=== PATIENT | female | born 1960 | race Caucasian/White ===

== ENCOUNTER 2025-09-05 08:33 | Outpatient (REF) | payer BC, SELFPAY ==
--- NOTE | ~2025-09-05 | XR_ITS ---
EXAMINATION: XR KNEE, RIGHT CLINICAL INFORMATION: M25.561 - Pain in right knee COMPARISON: None available. TECHNIQUE: Three views of the right knee. FINDINGS: Bone mineralization is decreased. Severe medial and patellofemoral compartment arthritis. Moderate lateral compartment arthritis. Genu varus. No acute fracture or dislocation. Small effusion. XR/XR knee RT 3V IMPRESSION: Advanced tricompartment osteoarthritis. Small effusion. Electronically signed by: Brett Geiger MD 09/05/2025 11:33 AM CATHIE
--- OUTSIDE RECORDS SUMMARY | 2025-09-06 09:06 | XMS_ITS | Clinical Summary ---
Author Organization [facility] [address] Address [address] [place] [address] Phone Care Team Providers Care Wool Hat Hydraulicker Name Role Phone Zoie Mullins MD Primary [...] Problem Noted Date Diagnosed Date Morbid obesity ([facility] V24, [facility] V28) 2024 Arthritis 02/25/2021 Crohn disease ([facility] V24, [facility] V28) 021 Incisional hernia with bowel obstruction 018 GERD (gastroesophageal reflux disease) 8 JORGE ALBERTO (obstructive sleep apnea) 04/25/2018 Overview (12/03/2024): [facility] Home Sleep Apnea Test: Date 01/18/2021; Wt [...] Care Team Description 06/10/2025 Telephone Pulmonology - [address] [place] [address] Lynn Gee MA from Last 3 Months Surgical History Surgery Date Site/Laterality Comments HERNIA REPAIR 11/06/2018 PROCEDURE: HISTORICAL HERNIA REPAIR/UMB; COMMENT: CHOLECYSTECTOMY PROCEDURE: IA CHOLECYSTECTOMY; COMMENT: 2008 COLONOSCOPY 01/2009 PROCEDURE: HISTORICAL COLONOSCOPY; COMMENT: normal OTHER SURGICAL HISTORY 1995 PROCEDURE: ---- OTHER ----; COMMENT: anal fistula repair OTHER SURGICAL HISTORY PROCEDURE: IA HYSTEROSCOPY ENDOMETRIAL ABLATION INCISIONAL HERNIA REPAIR PROCEDURE: IA IMPLANT MESH OPN HERNIA RPR/DEBRIDEMENT CLOSURE; COMMENT: repair incarcerated incisional hernia COLONOSCOPY 02/28/2014 PROCEDURE: HISTORICAL COLONOSCOPY; COMMENT: [id number] Medical History Medical History Date Comments GERD [...] 11:50 AM EDT Office Visit Pulmonology - [place] [address] [place] [address] Evelin Villa, KEYANA [address] [place] [address] Health Maintenance Due Date Last Done [...] Maintenance Results * COLONOSCOPY Anesthesia - MAC; [facility] ENDOSCOPY (03/14/2025 1:09 PM EDT) Anatomical Region [...] for surveillance. Narrative 03/14/2025 1:[address] [facility] Patient Name: Alexandra Flores Procedure Date: [...] retroflexion views. Procedure Code(s): --- Professional --- 99532, Colonoscopy, flexible; with removal of tumor(s), polyp(s), or other lesion(s) by snare technique Diagnosis Code(s): --- Professional --- K57.30, Diverticulosis of large intestine without perforation or abscess without bleeding D12.2, Benign neoplasm of ascending colon D12.5, Benign neoplasm of sigmoid colon Z86.010, Personal history of colonic polyps CPT copyright 2020 [employer]. All rights reserved. The codes documented in this report are preliminary and upon management coordinator review may be revised to meet current compliance requirements. MD Pieter Sams MD 03/14/2025 1:10:45 PM This report has been signed electronically.Pieter Allen MD Number of Addenda: 0 Note Initiated On: 03/14/2025 12:25 PM Scope In: Scope Out: Endoscopy Department at [facility] - [address] [place] [id number] Procedure Note Pieter Allen MD - 03/14/2025 [facility] Patient Name: Alexandra Flores Procedure Date: [...] retroflexion views. Procedure Code(s): --- Professional --- 03298, Colonoscopy, flexible; with removal of tumor(s), polyp(s), or other lesion(s) by snare technique Diagnosis Code(s): --- Professional --- K57.30, Diverticulosis of large intestine without perforation or abscess without bleeding D12.2, Benign neoplasm of ascending colon D12.5, Benign neoplasm of sigmoid colon Z86.010, Personal history of colonic polyps CPT copyright 2020 [employer]. All rights reserved. The codes documented in this report are preliminary and upon management coordinator reviewmay be revised to meet current compliance requirements. MD Pieter Sams MD 03/14/2025 1:10:45 PM This report has been signed electronically.Pieter Allen MD Number of Addenda: 0 Note Initiated On: 03/14/2025 12:25 PM Scope In: Scope Out: Endoscopy Department at [facility] - [address] [place] [phone] IMPRESSION: - Two 4 to 6 mm [...] Most Recently Relevant to Health Maintenance Insurance [facility] Advance Directives Documents on File Type Date Recorded Patient Test Engineering Intern Expl anation Health Care Decision (hx) 05/16/2016 BING NICHOLSON DIRECTIVE Care Teams Wool Hat Hydraulicker Relationship Specialty Start Date End Date Zoie Mullins MD [address] [place] [id number] PCP - General 05/28/24
--- OUTSIDE RECORDS SUMMARY | 2025-09-06 09:06 | XMS_ITS | Clinical Summary ---
Author Organization [facility] Address [address] [place] [address] Care Team Providers Care Commercial Loan Collection Officer Name Role Phone Unavailable Primary Care Provider [...] Subscriber ID Effective Dates Phone Address Type [facility] [id number] 10/31-Pres ent [address] [place] [address] [facility] [id number] 2019-Pres ent [address] [place] [address]
== END 2025-09-05 08:34 | disposition home or self-care (01) ==
LOC: HO.HOSX 08:33
PROVIDERS: Visit Provider Orthopaedic Surgery
DX: S83.241A Other tear of medial meniscus, current injury, right knee, initial encounter (principal)
CPT/HCPCS: 73562

== ENCOUNTER 2025-09-05 10:46 | Outpatient (AMB) | payer BC, SELFPAY ==
--- NOTE | 2025-09-05 11:10 | MHC.OFFVIS ---
Vital Signs 09/05/25 11:15 Height 5 ft 2 in Weight 286 lb BMI 52.3 Intake Visit Reasons: Right knee pain and giving way Intake Note: Leana is a 65 yr old female who presents with complaints of progressively worsening right knee pain and giving way. The patient describes her pain as sharp in nature. Most of the pain is along the medial aspect of her right knee. She states that her symptoms have gotten worse over the last 2 years in spite of continued non operative treatments. She has tried Tylenol, meloxicam, physical therapy and a home exercise program which gave her minimal relief. She states that her right knee will give out several times per day. She has had injections in the past which gave her minimal relief. At this point her right knee pain and mechanical symptoms are interfering with her activities of daily living and her ability to sleep well through the night. 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 Physical Exam Vital Signs: BMI result Body Mass Index 52.3 Const Other: Well-nourished well-developed very friendly female awake alert and oriented x3 in no acute distress Extrem Other: Bilateral lower extremity examination shows good capillary refill, no skin lesions noted, normal sensation light touch Right knee examination shows a minimal effusion, mild crepitus with range of motion, tenderness along her medial joint line, positive Chicho's test, no instability Results Reviewed Results Reviewed: Standing full weight-bearing x-rays of the patient's right knee show mild diffuse degenerative changes, no acute bony abnormalities MRI of the patient's right knee shows mild to moderate diffuse degenerative changes as well as a tear of the medial meniscus Assessment & Plan Assessment & Plan (1) Tear of medial meniscus of right knee: Code(s): S83.241A - Other tear of medial meniscus, current injury, right knee, initial encounter Category: Medical Plan Ms. Sandra presents with progressively worsening right knee pain and mechanical symptoms due to early degenerative joint disease as well as a medial meniscus tear. I had a lengthy discussion with the patient regarding the treatment options. She wishes to hold off on total knee replacement surgery if at all possible. I agree with this plan. The risks and benefits of right knee arthroscopic surgery were discussed at length with the patient. The patient wishes to proceed with surgery. Surgery will involve right knee arthroscopic partial medial meniscectomy. She does understand that she may not get 100% relief of her symptoms depending on the severity of her degenerative changes. She will be scheduled for next available date. She will follow up as instructed. Feel free to call me at any time should questions regarding her orthopedic management arise. Thank you very much for asking me to see this very friendly patient. I spent 21 minutes in reviewing the patient's records and imaging studies, seeing the patient and documenting in the medical record. Orders: Orders XR knee RT 3V Today M25.561 - Pain in right knee Coding Level of Care Code New Pt Level 3 (61765) Complex EM visit Add On G2211 Diagnoses Tear of medial meniscus of right knee S83.241A
[2025-09-05 11:15] VITALS: BMI 52.3
--- OUTSIDE RECORDS SUMMARY | 2025-09-05 13:04 | XMS_ITS | Clinical Summary ---
Author Organization [facility] [address] [facility] Address [address] [place] [address] Phone Care Team Providers Care Research Physician Name Role Phone Zoie Mullins MD Primary Care Provider Allergies Active Allergy Reactions Criticality Noted Date Comments Codeine Nausea And Vomiting 11/23/2017 Medications omega-3 acid ethyl esters (LOVAZA) 1 gram capsule Take 1 Capsule by mouth daily. 06/07/2022 Active mag citrate-potassiu m citrate 70-99 mg capsule Take by mouth. Active digestive enzymes combo no.7 capsule Take by mouth. Active Lactobacillus acidophilus (PROBIOTIC ACIDOPHILUS ORAL) Take by mouth. Active multivit-min/iro n/FA/vit K/lut (MULTIVITAMIN WOMEN 50 PLUS ORAL) Take by mouth daily. Active cholecalciferol (VITAMIN D-3) 25 mcg (1,000 unit) tablet Take 1 tablet (1,000 Units total) by mouth 1 (one) time each day. Active Active Problems Problem Noted Date Diagnosed Date Morbid obesity ([facility] V24, [facility] V28) 2024 Arthritis 02/25/2021 Crohn disease ([facility] V24, [facility] V28) 021 Incisional hernia with bowel obstruction 018 GERD (gastroesophageal reflux disease) 8 JORGE ALBERTO (obstructive sleep apnea) 04/25/2018 Overview (12/03/2024): [facility] Home Sleep Apnea Test: Date 01/18/2021; Wt 264#; BMI 48; CARSON (AHI) 9, AI 4; HI 5; Unclassified apneas 2; Obstructive apneas 22; Central apneas 2; Mixed apneas 0; hypopneas 37; average oxygen saturation 94% (lowest 87% without saturations <88% for 5% or more of study) - Obstructive Sleep Apnea - mild; mostly hypopneas and obstructive apneas; without sleep related hypoventilation by 2020 home sleep apnea test. Intertrigo 11/23/2017 Pannus, abdominal 11/23/2017 Encounters Date Type Department Care Team Description 06/10/2025 Telephone Pulmonology - [address] [place] [address] Lynn Gee MA from Last 3 Months Surgical History Surgery Date Site/Laterality Comments HERNIA REPAIR 11/06/2018 PROCEDURE: HISTORICAL HERNIA REPAIR/UMB; COMMENT: CHOLECYSTECTOMY PROCEDURE: WY CHOLECYSTECTOMY; COMMENT: 2008 COLONOSCOPY 01/2009 PROCEDURE: HISTORICAL COLONOSCOPY; COMMENT: normal OTHER SURGICAL HISTORY 1995 PROCEDURE: ---- OTHER ----; COMMENT: anal fistula repair OTHER SURGICAL HISTORY PROCEDURE: WY HYSTEROSCOPY ENDOMETRIAL ABLATION INCISIONAL HERNIA REPAIR PROCEDURE: WY IMPLANT MESH OPN HERNIA RPR/DEBRIDEMENT CLOSURE; COMMENT: repair incarcerated incisional hernia COLONOSCOPY 02/28/2014 PROCEDURE: HISTORICAL COLONOSCOPY; COMMENT: [id number] Medical History Medical History Date Comments GERD (gastroesophageal reflu x disease) 04/25/2018 DX:GERD (gastroesophageal re flux disease) JORGE ALBERTO (obstructive sleep apnea) 04/25/2018 DX :JORGE ALBERTO (obstructive sleep apnea) History of abdominal hernia 02/25/2021 DX:H istory of abdominal hernia Arthritis 02/25/2021 DX:Arthritis Intertrigo 11/23/2017 DX:Intertrigo Pannus, abdominal 11/23/2017 DX:Pannus, abd ominal Class 3 obesity without seri ous comorbidity with body mass index (BMI) of 40.0 to 44.9 in adult 04/18/2018 DX:Class 3 obesity with out serious comorbidity with body mass index (BMI) of 40.0 to 44.9 in adult Incisional hernia with bowel obstruction 08/11/2018 DX:Incisional hernia with satya wel obstruction Crohn disease (CMS/HCC V24, CMS/HCC V28) 02/25/2021 DX:Crohn disease (HCC) Family History Medical History Relation Name Comments Colon cancer Father stomach ulcers Coronary artery disease Father stomach ulcers Hypertension Father stomach ulcers Diabetes Mother Other: malignant tumor of breast Other cousin Relation Name Status Comments Father stomach ulcers Mother Other cousin Social History Tobacco Use Types Packs/Day Years Used Date Smoking Tobacco: Former Smokeless Tobacco: Never Alcohol Use Standard Drinks/Week Comments Yes 0 (1 standard drink = 0.6 oz pur e alcohol) Interpersonal Safety Answer Date Record ed Physical Abuse Unrecognized value 03/14/2025 Verbal Abuse Unrecognized value 03/14/2025 Comments No Sex and Gender Information Value Date Recorded Sex Assigned at Not on file Legal Sex Female 7:24 AM EST Gender Identity Not on file Sexual Orientation Not on file Obstetrics History Last Filed Vital Signs Vital Sign Reading Time Taken Comments Blood Pressure 126/76 05/31/2025 10:15 AM EDT Pulse 66 05/31/2025 10:15 AM EDT Temperature 36.4 C (97.5 F) 05/31/2025 10:15 AM EDT Respiratory Rate 16 05/31/2025 10:15 AM EDT Oxygen Saturation 99% 05/31/2025 10:15 AM EDT Inhaled Oxygen Concentration - - Weight 129 kg (284 lb 9.6 oz) 05/31/2025 10:15 A M EDT Height 157.5 cm (5' 2 ) 05/31/2025 10:15 AM EDT Body Mass Index 52.05 05/31/2025 10:15 AM EDT Plan of Treatment Upcoming Encounters Date Type Department Care Team (Late st Contact Info) Description 06/06/2026 11:50 AM EDT Office Visit Pulmonology - [place] [address] [place] [address] Evelin Villa, KEYANA [address] [place] [phone] Health Maintenance Due Date Last Done Comments Breast Cancer Screening 1960 Pneumococcal Vaccine: 50+ Years (1 of 1 - PCV) 2011 RSV Immunization Adult Patients (1 - Risk 50-74 years 1-dose series) 2011 Zoster Vaccines (1 of 2) 2011 Cervical Cancer Screening: Pap Smear 06/22/2020 06/22/2017 Cholesterol Screening (Lipid Panel) 10/03/2022 HIV Screening 10/03/2022 Hepatitis C Screening 10/03/2022 Social Influencers of Health Screening 10/03/2022 Depression Screening 10/31/2024 COVID-19 Vaccine ( season) 2025 07/29/2023, 07/19/2022, 09/03/2021, Additional history exists Influenza Vaccine (#1) 2025 , 07/29/2023, 07/19/2022, Additional history exists DTaP,Tdap,and Td Vaccines (3 - Td or Tdap) 04/21/2032 04/21/2022, 03/20/2009 Colorectal Cancer Screening: Colonoscopy 03/14/2035 03/14/2025, 11/20/2019 MMR Vaccines Aged Out 03/21/2019, 02/19/2019 No lo nger eligible based on patient's age to complete this topic HIB Vaccines Aged Out No longer eligi ble based on patient's age to complete this topic HPV Vaccines Aged Out No longer eligi ble based on patient's age to complete this topic Hepatitis A Vaccines Aged Out No long er eligible based on patient's age to complete this topic Hepatitis B Vaccines Aged Out No long er eligible based on patient's age to complete this topic IPV Vaccines Aged Out No longer eligi ble based on patient's age to complete this topic Meningococcal ACWY Vaccine Aged Out N o longer eligible based on patient's age to complete this topic Meningococcal B Vaccine Aged Out No l onger eligible based on patient's age to complete this topic RSV Immunization Patients Under 20 months Aged Out No longer eligible based on patient's age to complete this topic Varicella Vaccines Aged Out No longer eligible based on patient's age to complete this topic Procedures Procedure Name Priority Date/Time Associated Diagnosis Comments COLONOSCOPY Routine 03/14/2025 1:09 PM EDT Personal history of colon polyps, unspecified Colitis HM PAP SMEAR Routine 06/22/2017 from Last 3 Months or Most Recently Relevant to Health Maintenance Results * COLONOSCOPY Anesthesia - MAC; [facility] ENDOSCOPY (03/14/2025 1:09 PM EDT) Anatomical Region Laterality Modality Other 03/14/2025 12:2 5 PM EDT Impressions 03/14/2025 1:10 PM EDT - Two 4 to 6 mm polyps in the sigmoid colon and in the ascending colon, removed with a cold snare. Resected and retrieved. - Diverticulosis in the left colon. - The examination was otherwise normal on direct and retroflexion views. Recommendation: - Patient has a contact number available for emergencies. The signs and symptoms of potential delayed complications were discussed with the patient. Return to normal activities tomorrow. Written discharge instructions were provided to the patient. - Resume previous diet. - Continue present medications. - Await pathology results. - Repeat colonoscopy in 5-10 years for surveillance. Narrative 03/14/2025 1:10 PM EDT [facility] GI Patient Name: Alexandra Flores Procedure Date: 03/14/2025 12:25 PM Date of : 1960 Age: 64 Room: ROOM 16 Gender: Female Note Status: Finalized Attending MD: Pieter Allen MD, Procedure Date No Time: 03/14/2025 Procedure: Colonoscopy Indications: High risk colon cancer surveillance: Personal history of colonic polyps Providers: Pieter Allen MD Referring MD: Pieter Allen MD Medicines: Monitored Anesthesia Care Complications: No immediate complications. Estimated Blood Loss: Estimated blood loss: none. Procedure: After I obtained informed consent, the scope was passed under direct vision. Throughout the procedure, the patient's blood pressure, pulse, and oxygen saturations were monitored continuously. The Colonoscope was introduced through the anus and advanced to the cecum, identified by appendiceal orifice and ileocecal valve. The colonoscopy was performed without difficulty. The patient tolerated the procedure well. The quality of the bowel preparation was adequate. Findings: Two sessile polyps were found in the sigmoid colon and ascending colon. The polyps were 4 to 6 mm in size. These polyps were removed with a cold snare. Resection and retrieval were complete. Many medium-mouthed diverticula were found in the left colon. The exam was otherwise without abnormality on direct and retroflexion views. Procedure Code(s): --- Professional --- 41369, Colonoscopy, flexible; with removal of tumor(s), polyp(s), or other lesion(s) by snare technique Diagnosis Code(s): --- Professional --- K57.30, Diverticulosis of large intestine without perforation or abscess without bleeding D12.2, Benign neoplasm of ascending colon D12.5, Benign neoplasm of sigmoid colon Z86.010, Personal history of colonic polyps CPT copyright 2020 [employer]. All rights reserved. The codes documented in this report are preliminary and upon sharepoint solutions developer review may be revised to meet current compliance requirements. MD Pieter Sams MD 03/14/2025 1:10:45 PM This report has been signed electronically.Pieter Allen MD Number of Addenda: 0 Note Initiated On: 03/14/2025 12:25 PM Scope In: Scope Out: Endoscopy Department at [facility] - [address] [place] [id number] Procedure Note Pieter Allen MD - 03/14/2025 [facility] GI Patient Name: Alexandra Flores Procedure Date: 03/14/2025 12:25 PM Date of : 1960 Age: 64 Room: ROOM 16 Gender: Female Note Status: Finalized Attending MD: Pieter Allen MD, Procedure Date No Time: 03/14/2025 Procedure: Colonoscopy Indications: High risk colon cancer surveillance: Personalhistory of colonic polyps Providers: Pieter Allen MD Referring MD: Pieter Allen MD Medicines: Monitored Anesthesia Care Complications: No immediate complications. Estimated Blood Loss: Estimated blood loss: none. Procedure: After I obtained informed consent, the scope was passed under direct vision. Throughout theprocedure, the patient's blood pressure, pulse, and oxygen saturations were monitored continuously. The Colonoscope was introduced through the anus and advanced to the cecum, identified by appendiceal orifice and ileocecal valve. The colonoscopy was performed without difficulty. The patient tolerated the procedure well. The quality of the bowel preparation was adequate. Findings: Two sessile polyps were found in the sigmoid colonand ascending colon. The polyps were 4 to 6 mm in size. These polyps were removed with a cold snare.Resection and retrieval were complete. Many medium-mouthed diverticula were found in theleft colon. The exam was otherwise without abnormality ondirect and retroflexion views. Procedure Code(s): --- Professional --- 58324, Colonoscopy, flexible; with removal of tumor(s), polyp(s), or other lesion(s) by snare technique Diagnosis Code(s): --- Professional --- K57.30, Diverticulosis of large intestine without perforation or abscess without bleeding D12.2, Benign neoplasm of ascending colon D12.5, Benign neoplasm of sigmoid colon Z86.010, Personal history of colonic polyps CPT copyright 2020 [employer]. All rights reserved. The codes documented in this report are preliminary and upon sharepoint solutions developer reviewmay be revised to meet current compliance requirements. MD Pieter Sams MD 03/14/2025 1:10:45 PM This report has been signed electronically.Pieter Allen MD Number of Addenda: 0 Note Initiated On: 03/14/2025 12:25 PM Scope In: Scope Out: Endoscopy Department at [facility] - [address] [place] [id number] IMPRESSION: - Two 4 to 6 mm polyps in the sigmoid colon and in the ascending colon, removed with a cold snare.Resected and retrieved. - Diverticulosis in the left colon. - The examination was otherwise normal on directand retroflexion views. Recommendation: - Patient has a contact number available for emergencies. The signs and symptoms of potential delayed complications were discussed with thepatient. Return to normal activities tomorrow. Written discharge instructions were provided to thepatient. - Resume previous diet. - Continue present medications. - Await pathology results. - Repeat colonoscopy in 5-10 years forsurveillance. Pieter Allen MD GI~PROCEDURE ORDERABLES Final R esult * Hm Pap Smear (06/22/2017) HM Pap smear no interpretation , abstracted us Historical Provider HEALTH MAINTENANCE Final Result from Last 3 Months or Most Recently Relevant to Health Maintenance Insurance [facility] Advance Directives Documents on File Type Date Recorded Patient Transfusion Aide Expl anation Health Care Decision (hx) 05/16/2016 BING NICHOLSON DIRECTIVE Care Teams Research Physician Relationship Specialty Start Date End Date Zoie Mullins MD [address] [place] [id number] PCP - General 05/28/24
--- OUTSIDE RECORDS SUMMARY | 2025-09-05 13:04 | XMS_ITS | Data Portability ---
Author Organization [facility], [facility] Address [address] [place] [address] Care Team Providers Care Air Commodore Name Role Phone ABDIRIZAKRICARDO KAUR Primary Care Provider Assessment Encounter Date Assessment Date Assessment LastModified by Organization Details LastModified Time 02/21/2024 02/21/2024 A: Pt responded well to STM and was able to transfer on/off table without difficulty. TTP L hip and pt had increased pain with lying on L side. Pt encouraged to continue with gentle stretching throughout the day and to not sit > 15 minutes at a time. P: Continue per plan of care. [email or web address] Not available 02/21/2024 15:54:44 06/13/2024 06/13/2024 Patient seen under general supervision of Dr. Quiñones who was available but who did not see the patient. HPI: 64-year-old female seen today regarding right hip and knee pain. Patient and parents in difficulty for a number of months. Has been using ibuprofen without significant relief. Reports pain about the knee in the anterior aspect and difficulty with stairs and getting up from a seated position. Describes pain about the hip more about the low back. Denies any pain about the groin. Denies any recent falls or trauma. Past family, medical, social history and review of systems has been reviewed, updated and is located in the patient s chart. Examination: 64-year-old female acute distress alert and oriented. On examination right hip no ecchymosis or erythema and warmth noted. Patient has full range of motion without any irritability. No significant tenderness about the anterior lateral aspect of the hip. No groin pain elicited with range of motion. On examination of the right knee, no effusion erythema or warmth. Tenderness about the patellar facet as well as the medial and lateral jose manuel-joint lines. No gross instability. Range of motion 0-110 . Calf is soft. X-rays ordered, obtained and reviewed at [facility] 2 views of the right hip reveal minimal arthritic change, no evidence of acute fracture or dislocation. Outside x-rays of the right knee are independently reviewed revealing arthritic change about the medial and lateral compartments as well as notably about the patellofemoral articulation. No evidence of acute fracture. Impression: Right knee arthritis and low back pain Plan: Treatment options are reviewed. Regarding patient's hip, difficulty she is experiencing does not emanate from the hip itself therefore we will arrange for the patient to be seen by a tower air traffic control specialist for further evaluation and care. Regarding the right knee, patient suffers from arthritis was offered an injection which she accepted. This is performed today. Role of total knee arthroplasty discussed. Patient will work on weight loss, we will follow up regarding the knee on a p.r.n. basis. [employer] speech recognition remote sensing specialist software was used to create portions of this document. An attempt at proofreading has been made to minimize errors. Please call for corrections. [email or web address] Not available 06/13/2024 17:40:30 Plan of Treatment Reminders Order Date Submit Date Provider Last Modified By Organization Details Last Modified Time Details Appointments None recorded. Lab None recorded. Referral pain managemen t referral - lumbar spine eval for injection 2023 024 MILDRED [facility], [address] [place] [address], [address], 5 13:03:46 Procedures None recorded. Surgeries None recorded. Imaging XR, hip + pelvis, unilatera l, 2 or 3 view - 121 2v 2023 024 t[facility], [address] [facility] [address], [address], 4 07:39:23 Medication Orders None recorded. Patient Targets Encounter Date Encounter Id Patient Goals Patient Target Last Modified By Organization Details Last Modified Time 02/21/2024 [id number] 3 weeks of Walking 15 minutes without pain Not available Not available Not available skilled nursing goal of Walking No difficulty: walking capability is unlimited Not available Not available Not available 3 weeks of Overall ADL's WFL Not available Not available Not available skilled nursing goal of Overall ADL's performs without symptoms Not available Not available Not available 3 weeks of Sitting 30 minutes without pain Not available Not available Not available skilled nursing goal of Sitting performs without symptoms Not available Not available Not available 3 weeks of Standing 15 minutes without pain Not available Not available Not available 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 Reason for Referral Pain Management Referral for Dysfunction of posterior tibial tendon lumbar spine eval for injection Referring Physician: Jody Jensen, Orthopedic Surgery, [id number] Encounter Date: 08/20/2024 Results Created Date Observation Date Name Description Value Unit Range Abnormal Flag Note LastModifiedBy Organization Detail LastModifiedTime 06/13/20 24 06/13/2024 XR, hip + pelvi s, unila teral , 2 or 3 view http:/ [email or web address] ?Encry pted=s hAaTro YD8dLq bEUv6g %2BXZw aYqtaq 0bqfl% 2Fg9IQ a4ajBk vP9nXo QUaueC m3YtLR FvZlgJ JJ8mAn HZtai3 2u4074 AC0KoY 36DUqX eUC8mr 84%3D INTERFACE [facility] [address] [facility] [address], [place], [address], 06/13/2024 17:24:29 06/13/20 24 06/13/2024 XR, hip + pelvi s, unila teral , 2 or 3 view http:/ [email or web address] ?Encry pted=s hAaTro YD8dLq bEUv6g %2BXZw aYqtaq 0bqfl% 2Fg9IQ a4ajBk vP9nXo QUaueC m3YtLR FvZlgJ JJ8mAn HZtai3 9n4154 AC0KoY 36DUqX eUC8mr 84%3D INTERFACE [facility] [address] [facility] [address], [place], [address], 06/13/2024 17:24:30 08/16/20 24 08/15/2024 MRI, lumba r spine , w/o contr ast [facility] Access ion Number : [id number] Patien t Name: Hayley Floresa l Record Number : [id number] Date of : 1959 Date of Exam: 2023 Referr ing Physic [place]: [facility] [address] [facility] , [address] [place] [address] Exam: MR Lumbar Spine (C-) CPT 43576 Room Descri ption: [facility] Espr 1.5 HISTOR Y: Right hip pain and knee pain. COMPAR CRISTINE: Lumbar spine x-rays , 024. FINDIN GS: ALIGNM ENT, VERTEB CONCHIS, MARROW , AND DISCS: There is minima l stairs tep hali listhe sis from L3-L5 withou t pars defect . Remain ing alignm ent is normal . Verteb ral body height s are preser aldair. There is diffus e disc desicc ation with mild multil evel disc space narrow ing. There is edema within the bilate ral L4 and L5 pedicl es, as well as in the right L4-5 facets . Otherw ise, bone marrow signal is within normal limits . CONUS: The visual ized lower thorac ic cord is normal in calibe r and signal . The conus termin ates at L2. PARASP INAL TISSUE S: Retrop eriton eal soft tissue s are unrema rkable . There is fatty atroph y of the web coordinator ior parasp inal muscle s. DETAIL ED FINDIN GS BY LEVEL: L1-L2: There is no signif icant canal or neural forami nal stenos is. L2-L3: There is very minima l disc bulgin g and facet spurri ng withou t canal or neural forami nal stenos is. L3-L4: There is minima l disc bulgin g, web coordinator ior ligame ntous thicke kathe, and facet spurri ng withou t canal stenos is. The neural forame n are patent . L4-L5: There is minima l disc bulgin g, web coordinator ior ligame ntous thicke kathe, and facet spurri ng withou t signif icant canal stenos is. The neural forame n are patent . L5-S1: There is very minima l disc bulgin g and facet spurri ng withou t canal stenos is. The neural forame n are patent . IMPRES YUMI: 1. Mild multil evel degene rative change s are seen as descri bed withou t signif icant canal stenos is or eviden ce of nerve root imping ement. 2. There is edema within the bilate ral L4 and L5 pedicl es as well as the right- sided facet, likely due to underl gregoyr inflam mation /stres s. Electr onical ly Signed By: Emely velarde MD [facility] ([facility]) [address] [facility] [address], [place], [address], 08/20/2024 08:45:56 Result Notes Documentation Provider Name and Address Organization Details Recorded Time Xr, Hip + Pelvis, Unilateral, 2 Or 3 View : [email or web address] ncrypted=aaCaYbxZD8uVxrZVl 6g%8MJHswQapyd4sdji%2Fg9IQ i7evJlzR2tXaVSfcoOu5OuOPNq ZffCJR0oMoPArkq38h0725ZJ6H vQ73NXhZiNJ1yu51%3D Not Available [facility] 06/13/2024 17:24:29 Xr, Hip + Pelvis, Unilateral, 2 Or 3 View : [email or web address] ncrypted=nwJuXcyFK1jWlrEJx 6g%0OQCuyVfmem1elrf%2Fg9IQ p6hmHejV4nVlOEjgzLp9HqHHGi RpiQDH6iUoUIowm62k1743MY9X jY39NOyDvJY9ar60%3D Not Available [facility] 06/13/2024 17:24:31 Mri, Lumbar Spine, W/o Contrast : [facility] [place] Accession Number: [id number] Patient Name: Leana Flores Date of : 1960 Date of Exam: 08-15-2024 Referring Physician: Jody Jensen [facility] ([facility]) [address] [place] [address], [address] [place] [address] Exam: MR Lumbar Spine (C-) CPT 71338 Room Description: [facility] Espr 1.5 HISTORY: Right hip pain and knee pain. COMPARISON: Lumbar spine x-rays, 01/19/2024. FINDINGS: ALIGNMENT, VERTEBRAE, MARROW, AND DISCS: There is minimal stairstep anterolisthesis from L3-L5 without pars defect. Remaining alignment is normal. Vertebral body heights are preserved. There is diffuse disc desiccation with mild multilevel disc space narrowing. There is edema within the bilateral L4 and L5 pedicles, as well as in the right L4-5 facets. Otherwise, bone marrow signal is within normal limits. CONUS: The visualized lower thoracic cord is normal in caliber and signal. The conus terminates at L2. PARASPINAL TISSUES: Retroperitoneal soft tissues are unremarkable. There is fatty atrophy of the posterior paraspinal muscles. DETAILED FINDINGS BY LEVEL: L1-L2: There is no significant canal or neural foraminal stenosis. L2-L3: There is very minimal disc bulging and facet spurring without canal or neural foraminal stenosis. L3-L4: There is minimal disc bulging, posterior ligamentous thickening, and facet spurring without canal stenosis. The neural foramen are patent. L4-L5: There is minimal disc bulging, posterior ligamentous thickening, and facet spurring without significant canal stenosis. The neural foramen are patent. L5-S1: There is very minimal disc bulging and facet spurring without canal stenosis. The neural foramen are patent. IMPRESSION: 1. Mild multilevel degenerative changes are seen as described without significant canal stenosis or evidence of nerve root impingement. 2. There is edema within the bilateral L4 and L5 pedicles as well as the right-sided facet, likely due to underlying inflammation/stress. Electronically Signed By: Emely see [place] [facility] 08/20/2024 08:45:56 Problems Name Problem SNOMED Code Status Onset Date Resolution Date Notes Provider Name and Address Organization Details Recorded Time No complaints 130189748 Active Status : 'A'; Not Available [facility] 09:24:05 Low back pain 473826984 Active 2023 Hema Ivan, PT [address], [place], [address] , [facility] 12:55:56 Problem Notes None recorded. Procedures Surgical History Date Name Laterality Status Provider Name and Address Organization Details Recorded Time 02/07/20 JZCMC Inj completed Ankita Trujillo PA-C [address], [place], [address], [facility] 02/06/2025 16:43:19 06/13/20 24 JZKNEE INJ completed Layo Mcmahon PA-C [address], [place], [address], [facility] 06/13/2024 17:38:05 02/21/20 24 [id number] Therapeutic Exercise (1:1) completed Shiela Chapman PTA [address], [place], [address], [facility] 02/20/2024 16:12:51 02/21/20 24 57665: Hot or Cold Pack completed Shiela Chapman PTA [address], [place], [address], [facility] 02/20/2024 16:12:51 02/21/20 24 09043: Manual therapy completed Shiela Chapman PTA [address], [place], [address], [facility] 02/21/2024 13:48:51 02/17/20 24 95952 Therapeutic Exercise (1:1) completed Shiela Chapman PTA [address], [place], [address], [facility] 02/16/2024 15:30:18 02/17/20 24 27680: Hot or Cold Pack completed Shiela Chapman, STRUCTURAL ANALYST [address], [place], [address], [facility] 02/16/2024 15:30:18 02/17/20 24 06994: Manual therapy completed Shiela Chapman, STRUCTURAL ANALYST [address], [place], [address], [facility] 02/17/2024 10:12:52 02/15/20 24 23637 Therapeutic Exercise (1:1) completed Shiela Chapman, STRUCTURAL ANALYST [address], [place], [address], [facility] 02/15/2024 15:53:32 02/15/20 24 15386: Hot or Cold Pack completed Shiela Chapman, STRUCTURAL ANALYST [address], [place], [address], [facility] 02/15/2024 15:53:53 02/15/20 24 43765: Manual therapy completed Shiela Chapman, STRUCTURAL ANALYST [address], [place], [address], [facility] 02/15/2024 15:53:57 02/08/20 24 54459 Therapeutic Exercise (1:1) completed Hema Ivan, PT [address], [place], [address], [facility] 02/08/2024 14:06:44 02/03/20 24 96065 Therapeutic Exercise (1:1) completed Hema Ivan PT [address], [place], [address], [facility] 02/02/2024 14:40:21 02/03/20 24 67040: Low complexity PT Eval completed Hema Ivan, PT [address], [place], [address], [facility] 02/03/2024 12:54:07 11/06/19 18 Gastrointestinal Surgery completed Ankita Trujillo PA-C [address], [place], [address], [facility] 02/06/2025 16:39:13 Imaging Results None recorded. Procedure Notes None recorded. Medical Equipment None Reported. Allergies Allergen ID Allergen Name Allergen Category Reaction Reaction Severity Criticality Documentation Date Start Date Code Code System Note Provider Name and Address Organization Details Recorded Time 70156 codeine sulfate medicatio n Not available Not available Not available 01/02/20242009 42461 RxNorm Aller gyRea ction : 'Naus ea/Vo mitin g/Lor rrhea '; Not Available [facility] 12:19:39 Medications Name Sig Start Date Stop Date Status Note LastModified by Organization Details LastModified Time erythromyci n 5 mg/gram (0.5 %) eye ointment APPLY LIBERALLY TO EACH EYE THREE TIMES A DAY FOR 7 DAYS 06/12 completed Not Available Not Available Not Available Flector 1.3 % transdermal 12 hour patch APPLY 1 PATCH TO SKIN, CHANGE EVERY 12 HOURS NEEDED active Not Available Not Available No t Available Women's Multivitami n 18 mg iron-400 mcg-500 mg tablet 1 tablet every day by oral route. active Not Available Not Available No t Available Vitals Date Recorded Body height Body mass index (BMI) Body weight Provider Name and Address Organization Details Last Updated DateTime 02/06/2025 157.48 cm 51.6 kg/m2 467084.05 g Ankita Trujillo PA-C [address], [place], [address], [facility] 02/06/2025 16:38:52 Date Recorded Body height Provider Name an d Address Organization Details Last Updated DateTime 06/13/2024 157.48 cm SULTANA RIDDLE [facility] 06/13/2024 17:11:54 Date Recorded Body height Body mass index (BMI) Body weight Provider Name and Address Organization Details Last Updated DateTime 08/20/2024 157.48 cm 51.6 kg/m2 632732.05 g Elisa Patel [facility] 08/20/2024 10:03:17 Social History Question Answer Notes LastModified by Organizat ion Details LastModified Time Tobacco Smoking Status Former Smoker Ankita Trujillo PA-C [address], [place], [address], [facility] 02/06/2025 16:39:08 When Did You Quit Smoking? 17+yearssin celastciitzel ette Information not available 02/06/2025 What Is Your Relationship Status? Single Information not available 02/06/2025 How Many Years Have You Smoked Tobacco? 28 Information not available 02/06/2025 Sex: Unknown Functional Status Question Answer Note LastModified by Organizat ion Details LastModified Time How many times per week do you consume alcohol? 3-4 times per week Information not available 02/06/2025 Do you use any illicit or recreational drugs? No Information not available 02/06/2025 Do you or have you ever used any other forms of tobacco or nicotine? No Information not available 02/06/2025 Do you or have you ever used e-cigarettes or vape? Never used electronic cigarettes Information not available 02/06/2025 Mental Status None recorded. Family History Nothing Reported. Medical History No medical history recorded. Gynecological HistoryNo gynecological history recorded. Obstetrics History GPAL:G 0 P 0 0 0 0 Past Encounters Encounter ID Performer Location Encounter Start Date Encounter Closed Date Diagnosis/Indication Diagnosis SNOMED-CT Code Diagnosis ICD10 Code Diagnosis IMO Codes Diagnosis Note [id number] Hema Ivan [facility] [address] [place] [address] 02/03/2024 09:44:56 02/03/2024 15:46:30 Low back pain 597308383 M54.50 [id number] ELIZABETH Pinedo PT [address] [place] [address] 02/08/2024 13:17:36 02/08/2024 18:55:33 Low back pain 864493081 M54.50 [id number] Shiela Chapman, VIOLETA [facility] [address] [place] [address] 02/15/2024 13:30:20 02/15/2024 15:54:57 Low back pain 235985057 M54.50 [id number] Shiela Chapman, STRUCTURAL ANALYST [facility] [address] [place], [place] [address] 02/17/2024 08:22:26 02/17/2024 10:15:27 Low back pain 085123378 M54.50 [id number] Shiela Chapman, STRUCTURAL ANALYST [facility] [address] [place] [address] 02/21/2024 10:30:02 02/21/2024 16:00:14 Low back pain 709751601 M54.50 [id number] Layo Mcmahon PA-C [address] [place] [address] 06/13/2024 17:03:16 07/04/2024 07:39:23 Pain of right hip joint 0183923251 08537 M25.551 Osteoarthr itis of knee 838763206 M17.9 [id number] Jody Jensen PA-C [address] [place] [address] 08/02/2024 13:46:46 08/28/2024 10:51:19 Lumbar radiculopathy 561361640 M54.16 Low back pain 759360002 M54.50 [id number] Jody Jensen PA-C [address] [place] [address] 08/20/2024 09:52:29 09/07/2024 10:08:39 Dysfunction of posterior tibial tendon 8671142288 22506 M76.606 [id number] Lumbar radiculopathy 128 573989 M54.16 [id number] Ankita Trujillo PA-C [facility] [address] [place] [address] 02/06/2025 16:31:00 02/25/2025 13:01:37 Health Concerns Section Related Observation LastModified by Organization Detai ls LastModified Time None Recorded Concern Status LastModified by Organization Details LastModified Time None Recorded Advance Directives Directive None Recorded Payers Insurance Date Sequence Insurance Name Policy Number Policy Martinez Covered Member ID Martinez Member ID Guarantor Name 02/25/2025 1 [place] [facility] ([place]) [id number] Leana Flores [id number] Leana Flores Notes Date Note Type Note Provider Name and Address Organization Details Recorded Time 4 text/html Pt reports her LB is sore and B hips. I feel good after therapy but I'm sore the next day. Shiela Chapman, STRUCTURAL ANALYST [address], [place], [address], [facility] 02/21/2024 16:00:07 4 text/html I am seeing the patient today under the supervision of Dr. Bird who was available but who did not see the patient. HPI: Patient presents for evaluation of ongoing low back pain. Patient reports radiating right leg pain, paresthesias and weakness. Standing and walking worse than sitting. No clear etiology. Worsening over time. Rates pain moderate to severe. Denies bowel or bladder dysfunction. TREATMENTS: Bed rest, activity modification, home exercise core strengthening lumbar stabilization program over the past 3 months, and NSAIDs. Past family, medical, social history and review of systems has been reviewed, updated and signed by me and is located in the patient's chart. Examination: The patient is well appearing, alert and oriented x3 and in no acute distress. Gait is antalgic. Inspection of the spine reveals no step off, deformity or overlying skin changes. Range of motion of the lumbar spine is 60% of normal. Range of motion of the hip and knees full without discomfort. The spine is nontender over the paravertebral musculature. Nontender over the greater trochanters. Straight leg raise is positive on the affected side. Strength and sensation intact. Re e xes normal. No ankle clonus. X-rays previously taken at outside facility independently reviewed 2 views of the lumbar spine reveals no fractures, instability or bony lesions. Mild degenerative disc disease noted L4-S1. Impression/Plan: Low back pain/Lumbar DDD/Lumbar radiculitis. Discussed the nature of the problem with the patient. MRI lumbar spine ordered to evaluate for high grade stenosis. Follow-up will be arranged in 4-6 weeks. [employer] speech recognition remote sensing specialist software was used to create portions of this document. An attempt at proofreading has been made to minimize errors. Please call for corrections. Jody Jensen PA-C [address] [facility] [address], [place], [address], [facility] 08/02/2024 14:19:44 4 text/html I am seeing the patient today under the supervision of Dr. Bird who was available but who did not see the patient.HPI: Patient presents for a recheck regarding low back pain. Presents for MRI review lumbar spine. Patient reports radiating right leg pain, paresthesias and weakness. Standing and walking worse than sitting. No clear etiology. Worsening over time. Rates pain moderate to severe. Denies bowel or bladder dysfunction.TREATMENTS: Bed rest, activity modification, home exercise core strengthening lumbar stabilization program over the past 3 months, and NSAIDs.Past family, medical, social history and review of systems has been reviewed, updated and signed by me and is located in the patient's chart.Examination: The patient is well appearing, alert and oriented x3 and in no acute distress. Gait is antalgic. Inspection of the spine reveals no step off, deformity or overlying skin changes. Range of motion of the lumbar spine is 60% of normal. Range of motion of the hip and knees full without discomfort. The spine is nontender over the paravertebral musculature. Nontender over the greater trochanters. Straight leg raise is positive on the affected side. Strength and sensation intact. Re e xes normal. No ankle clonus.X-rays previously taken at outside facility independently reviewed 2 views of the lumbar spine reveals no fractures, instability or bony lesions. Mild degenerative disc disease noted L4-S1.MRI lumbar spine reviewed independently today reveals minimal stairstep anterolithesis L3-5. There is some edema in the bilateral L4 and L5 pedicles and right sided facet without evidence of fracture. No high grade stenosis.Impression/Plan: Low back pain/Lumbar DDD/Lumbar radiculitis, right sided. Discussed the nature of the problem with the patient. No aggressive treatments warranted based on MRI findings. I discussed a referral to pain management to be evaluated for an injection now that she has failed to improved with PT and NSAIDs. 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 We discussed core strengthening exercises which she is unable to tolerate right now. Also requested custom orthotics for her flat feet. Sent her to [employer] speech recognition remote sensing specialist software was used to create portions of this document. An attempt at proofreading has been made to minimize errors. Please call for corrections. Jody Jensen PA-C [address], [place], [address], [facility] 08/20/2024 12:34:39 5 text/html ROS as noted in the HPI I am seeing the patient today under the supervision of Dr. Abbasi who was available but who did not see the patient. DX:. Bilateral Basilar joint osteoarthritisStatus post cortisone injection left thumb status post cortisone injection 10/18/2023 HPI: 64-year-old female here for reevaluation. She is complaining of left thumb pain. Has pain with grasp. No splinting. Anti-inflammatories take the edge off. Previous injection was helpful. Past family, medical, social history and review of systems has been reviewed, updated and is located in the patient s chart. Examination: Alert and oriented 3. No acute distress. Nonantalgic gait. Bilateral Thumb reveals no soft tissue swelling erythema ecchymosis. Tender over the TM joint. Positive for symptomatic grind test. No tenderness of the first dorsal compartment. Negative Tinel sign over the distal radial sensory nerve. Neurovascular intact. No tennis with A1 raissa region. Impression/Plan:The findings and situation discussed with the patient. she will like to proceed with the cortisone injections to the left thumb.Under aseptic technique. 40 mg of Kenalog 40 and 1 cc 1% lidocaine were injected into the Left TM joint. Patient tolerated the procedure well. Postinjection course discussed. Ankita Trujillo PA-C [address], [place], [address], [facility] 02/06/2025 16:43:34 OBGyn Episode No OBEpisode recorded.
--- OUTSIDE RECORDS SUMMARY | 2025-09-05 13:04 | XMS_ITS | Clinical Summary ---
Author Organization [facility] Address [address] [place] [address] Care Team Providers Care Account Processor Name Role Phone Unavailable Primary Care Provider Unavailabl e Allergies No known active allergies Medications No known medications Social History Tobacco Use Types Packs/Day Years Used Date Smoking Tobacco: Former Cigarettes 30 Smokeless Tobacco: Never Alcohol Use Standard Drinks/Week Comments Yes 0 (1 standard drink = 0.6 oz pur e alcohol) Sex and Gender Information Value Date Recorded Sex Assigned at Not on file Gender Identity Not on file Sexual Orientation Not on file Last Filed Vital Signs Vital Sign Reading Time Taken Comments Blood Pressure - - Pulse - - Temperature - - Respiratory Rate - - Oxygen Saturation - - Inhaled Oxygen Concentration - - Weight 100.7 kg (222 lb) 02/09/2018 2:55 PM EDT Height 157.5 cm (5' 2 ) 02/09/2018 2:55 PM EDT Body Mass Index 40.6 02/09/2018 2:55 PM EDT Plan of Treatment Health Maintenance Due Date Last Done Comments Hepatitis C Screening 1961 COVID-19 Vaccine (#1) 1961 Depression Screening 1973 Preventative Health Evaluation 1979 Cervical Cancer Screening (P ap Smear) 1982 Colon Cancer Screening (Colonoscopy) 2006 Breast Cancer Screening (Mammogram) 2011 Shingrix-Zoster Vaccine (1 of 2) 2011 DTap / Tdap / Td (2 - Td or Tdap) 03/20/2019 009 Influenza Vaccine (#1) 2025 07/23/2016 Pneumococcal Vaccine (1 of 1 - PCV) 2026 RSV Adult > 60+ Yrs or Pregn ant (1 - 1-dose 75+ series) 2036 Hepatitis B Vaccines Aged Out No long er eligible based on patient's age to complete this topic Pneumococcal Vaccine Aged Out No long er eligible based on patient's age to complete this topic RSV Ped < 20 months Aged Out No longe r eligible based on patient's age to complete this topic Insurance Payer Benefit Plan / Group Subscriber ID Effective Dates Phone Address Type [facility] [id number] 10/31-Pres ent [address] [place] [address] [facility] [id number] 2019-Pres ent [id number] [place] [address]
--- OUTSIDE RECORDS SUMMARY | 2025-09-05 13:04 | XMS_ITS | Data Portability ---
Author Organization [facility], Main Office Address [address] [facility] [address] [place] [id number] Care Team Providers Care Community Advocate Name Role Phone CASSIA KOCH Primary Care Provider [phone] ANA SADLER Military Nurse PIETER PROCTOR Armature Inspector DIONISIO AGUILAR Extruding Press Adjuster Assessment No assessment recorded. Plan of Treatment Reminders Order Date Submit Date Provider Last Modified By Organization Details Last Modified Time Details Appointments None recorded. Lab HbA1c (hemoglobin A1c), blood 2021 [facility], [address], [place], [address], 15:07:00 lipid panel, serum 2021 022 [facility], [address], [facility] [place], [address], 3 12:57:38 BMP, serum or plasma 2021 022 [facility], [address], [facility] [place], [address], 3 12:57:38 CBC w/ auto diff 2021 022 [facility], [address], [place], [address], 15:05:09 Referral gastroenter ologist referral - due for colon in 2022 current patient last seen 2019 022 [email or web address] 3 Pieter Proctor MD, [address] [place], [address], 3 12:50:25 gynecologis t referral 2021 022 [email or web address] Not available 14:00:19 gastroenter ologist referral - hx of small bowel obstruciton 2018 019 [email or web address] 3 Pieter Proctor MD, [address] [place], [address], 9 09:50:50 Procedures None recorded. Surgeries None recorded. Imaging MAMMO, screening, bilateral 2021 022 [facility], [address] [facility], [address], [place], [address], 3 11:25:20 Medication Orders None recorded. Patient TargetsNo targets recorded. Patient Instructions Encounter Date Encounter Id Patient Instructions Last Modified By Organization Details Last Modified Time 12/29/2018 [id number] sleep apnea: care instructions [email or web address] Not available 12/29/2018 10:40:28 crohn's disease: care instructions [email or web address] Not available 12/29/2018 10:40:28 Reason for Referral Armature Inspector Referral for Crohn's disease hx of small bowel obstruciton Referring Physician: [facility], Encounter Date: 12/29/2018 Shoer Referral for Sc reening for malignant neoplasm of cervix Referring Physician: [facility], Encounter Date: 07/26/2022 Armature Inspector Referral for Crohn's disease due for colon in 2022 current patient last seen 2019 Referring Physician: [facility], Encounter Date: 07/26/2022 Results Created Date Observation Date Name Description Value Unit Range Abnormal Flag Note LastModifiedBy Organization Detail LastModifiedTime 02/16/2002/16/2019 MMR immun ity, serum rubeola Ab IgG NEGAT ASAD Indic ates lack of prior expos ure. Not Available [facility] (Centralized Electronic Ordering - All Locations) Patient Can Go To The Location Of Their Choice, [id number] 02/16/2019 09:32:05 02/16/20 19 02/16/2019 MMR immun ity, serum mumps Ab IgG POSIT ASAD Indic ates prior expos ure or immun ity. Not Available [facility] (Centralized Electronic Ordering - All Locations) Patient Can Go To The Location Of Their Choice, [id number] 02/16/2019 09:32:05 02/16/20 19 02/16/2019 MMR immun ity, serum rubella IgG antibody POSIT ASAD Indic ates prior expos ure or immun ity. React asad for IgG antib odies . Testi ng perfo rmed on the VIDAS immun oassa y syste m. Not Available [facility] (Centralized Electronic Ordering - All Locations) Patient Can Go To The Location Of Their Choice, [id number] 02/16/2019 09:32:05 03/02/2003/02/2019 mm digit al mammo unila t right PROCED URE: MM Digita l Mammo Unilat Right INDICA TION: Six-mo nth follow -up. Small nodule . COMPAR FIDEL: Studie s back to 2016. TECHNI QUE: Digita l diagno stic mammog debbi consis ting of cranio caudal and MLO 3-D tomogr ams of the right breast . Comput er-aid ed detect ion (CAD) was utiliz ed in the interp retati on of this study. FINDIN GS: The breast s are almost entire ly fatty replac ed. The small nodule in the far rubble placer ior latera l right breast is again identi fied. It is unchan ged. No new densit ies have develo ped. IMPRES YUMI: No change . RECOMM ENDATI ON: Follow -up right diagno stic mammog debbi in 6 months BI-RAD S: 3 (Proba gisela Benign ) Lay letter mailed to aroldo zarate WSN: [id number] Dictat ed By: Victor Manuel arshad MD, Nick Dictat ed Date/T johana: 3:15 pm Review ed By: Nick Bennett MD Signed By: Nick Bennett MD Signed /T johana: 3:15 pm Transc ribed By: RAJNI Transc riptio n Date/T johana: 3:02 pm Birads : Patien t Class: Outpat ient [email or web address] (Outpt Imaging) [address], [place], [address], 03/02/2019 15:34:46 12/15/19 21 12/12/2020 MAMMO , scree kathe, digit al, bilat eral No observ ation record ed. [address] [facility] Orders [address], [place], [address], 12/24/2020 11:04:17 12/18/19 21 12/12/2020 MAMMO , scree kathe, digit al, bilat eral No observ ation record ed. [address] [facility] Orders [address], [place], [address], 12/24/2020 11:06:02 01/24/20 21 01/18/2021 sleep study , diagn ostic * No observ ation record ed. [facility] [address] [facility] [address], [place], [address], 01/23/2021 15:19:02 08/20/20 22 08/20/2022 MAMMO , scree kathe, bilat eral PROCED URE: MM Digita l Mammo Screen ing INDICA TION: Screen ing for breast cancer . No known palpab le abnorm alitie s. COMPAR FIDEL: Multip le prior compar fidel studie s, most recent on 021. TECHNI QUE: Full-f ield digita l CC and MLO 3D tomosy nthesi s images of both breast s were acquir ed. Comput er-aid ed detect ion (CAD) was utiliz ed in the interp retati on of this study. DENSIT Y: The breast tissue is almost entire ly fatty. FINDIN GS: No suspic ious masses , suspic ious microc alcifi cation s, or areas of marisol ectura l distor tion are seen in either breast to sugges t malign kadie. IMPRES YUMI: No mammog raphic eviden ce of malign kadie. RECOMM ENDATI ON: Annual mammog raphic screen ing BI-RAD S: 1 (Negat asad) Lay letter mailed to aroldo zarate WSN: [id number] Orderi ng Physic charlotte: Mary Medina NP Dictat ed By: Luly Gordillo MD Dictat ed Date/T johana: 1:30 pm Review ed By: Luly Gordillo MD Signed By: Luly Gordillo MD Signed Date/T johana: 1:30 pm Transc ribed By: CSB Transc riptio n Date/T johana: 1:11 pm Birads : Aroldo zarate Class: Outpat ient [facility] (Outpt Imaging) [address] [place], [address], 01/27/2023 11:25:20 Result Notes Documentation Provider Name and Address Organization Details Recorded Time Mammo, Screening, Bilateral : PROCEDURE: MM Digital Mammo Screening INDICATION: Screening for breast cancer. No known palpable abnormalities. COMPARISON: Multiple prior comparison studies, most recent on 12/12/2020. TECHNIQUE: Full-field digital CC and MLO 3D tomosynthesis images of both breasts were acquired. Computer-aided detection (CAD) was utilized in the interpretation of this study. DENSITY: The breast tissue is almost entirely fatty. FINDINGS: No suspicious masses, suspicious microcalcifications, or areas of architectural distortion are seen in either breast to suggest malignancy. IMPRESSION: No mammographic evidence of malignancy. RECOMMENDATION: Annual mammographic screening BI-RADS: 1 (Negative) Lay letter mailed to patient WSN: [id number] Ordering Physician: Mary Randle NP Dictated By: Luly Castillo MD Dictated Date/Time: 08/20/22 1:30 pm Reviewed By: Luly Castillo MD Signed By: Luly Castillo MD Signed Date/Time: 08/20/22 1:30 pm Transcribed By: RAJNI Class 1 Owner Operator Date/Time: 08/20/22 1:11 pm Birads: Patient Class: Outpatient [place] OSMANI Bravo [facility] 01/27/2023 11:25:20 Problems Name Problem SNOMED Code Status Onset Date Resolution Date Notes Provider Name and Address Organization Details Recorded Time Divertic ular disease of colon 300645359 Completed 07/28/2018 seen on colonosc opy Cassia GlaJúnior shellenzo mayi [facility] 8 13:56:07 Divertic ulitis of colon 943627413 Completed 07/28/2018 Cassia shellenzo mayi [facility] 8 13:55:26 Body mass index 40+ - severely obese 458249430 Completed 07/28/2018 Cassia see [facility] 8 13:56:14 Fatigue 49924936 Completed 07/28/2018 Cassia shellenzo mayi [facility] 8 13:56:32 Knee pain Completed 07/28/2018 Cassia de leono mayi [facility] 8 13:56:02 Hypercho lesterol emia 83091383 Completed 07/28/2018 Cassia de leono mayi [facility] 8 13:55:32 Sleep apnea 69663773 Active Not Available [facility] 0 15:44:20 Cough 61172848 Completed 07/28/2018 Cassia de leono mayi [facility] 8 13:56:26 Laryngit is 15334601 Completed 07/28/2018 Cassia de leono mayi [facility] 8 13:56:23 Sinusiti s 31029420 Completed 07/28/2018 Cassia de leono mayi [facility] 8 13:56:10 Vaginiti s and vulvovag initis Completed 07/28/2018 Cassiatobias shellenzo null, [facility] 8 13:55:35 Cellulit is 296215396 Completed 07/28/2018 Cassia Glading-Mansi shellwendy null, [facility] 8 13:55:29 Acute pharyngi tis 839769049 Completed 200805/21/2014 RECORDED 03/20/20 09 2:12PM BY ARI PIZANO ON/[facility] 12:[facility]18 Administ ration of bacteria l and viral vaccine Completed 200805/21/2014 RECORDED 03/20/20 09 2:17PM BY DIMITRIS GUERRA, OFFICE VISIT [facility] 6 12:46:18 Acute pharyngi tis 723937255 Completed 200806/10/2014 RECORDED 03/20/20 09 2:12PM BY ARI PIZANO ON/ADDEN DUM [place] see, [facility] 6 12:46:18 Administ ration of bacteria l and viral vaccine Completed 200806/10/2014 RECORDED 03/20/20 09 2:17PM BY DIMITRIS GUERRA, OFFICE VISIT [place] see, [facility] 6 12:46:18 Malaise and fatigue 761728175 Completed 200905/21/2014 RECORDED 04/09/20 10 9:51AM BY YULIET GUERRA MA, ANNOTATI ON/ADDEN DUM Cassiatobias shellenzo null, [facility] 8 13:55:55 Malaise and fatigue 913372051 Completed 200906/10/2014 RECORDED 04/09/20 10 9:51AM BY YULIET GUERRA MA, ARI ON/ADDEN DUM Cassia Matty-Mansi shellwendy null, [facility] 8 13:55:55 Bronchos pasm 5705932 Completed 201105/21/2014 IMPRESSI ON: MILD WHEEZING , PT TO TRY MEDS ABOVE, IF NOT BETTER TX WITH PREDNISO NE FOR 5 DAYS; RECORDED 10/26/20 12 3:05PM BY NUVIA WELLER MA, ARI ON/ADDEN DUM [place] Gee'Aleleon ro null, [facility] 6 12:46:18 Acute sinusiti s 55739800 Completed 201105/21/2014 IMPRESSI ON: NEW PROBLEM TO EXAMINER , TREAT WITH AMOX FOR 14 DAYS, AVOID DECONGES TANTS, TREAT IWTH NASAL SALINE.; RECORDED 10/26/20 12 3:05PM BY NUVIA WELLER MA, ARI ON/ADDEN DUM [place] ChaudhariAlessand ro null, [facility] 6 12:46:18 Screenin g for malignan t neoplasm of breast Completed 201105/21/2014 RECORDED 10/26/20 12 3:05PM BY NUVIA WELLER MA, [facility] Norris [facility] null, [facility] 6 12:46:18 Screenin g for malignan t neoplasm of cervix Completed 201105/21/2014 RECORDED 10/26/20 12 3:05PM BY NUVIA WELLER MA, ARI ON/ADDEN DUM [place] Norris ro null, [facility] 6 12:46:18 Cough 29337576 Completed 201105/21/2014 IMPRESSI ON: PERSISTE NT PRODUCTI VE COUGH DESPITE COMPLETI NG 2 COURSES OF ANTIBIOT ICS, H/O PNEUMONI A 11/09; RECORDED 10/26/20 12 3:05PM BY NUVIA WELLER MA, ARI ON/ADDEN DUM Cassia Mahnazding-Di wendy null, [facility] 8 13:56:26 Pain in limb 07093392 Completed 201105/21/2014 IMPRESSI ON: FOLLOWIN G INJURY OVER THE WEEKEND. WILL CHECK XRAY, ADVISED RE RICE, CONTINUE WITH PRN OTC ANAGLESI C. WILL CONTACT WITH RESULT OF IMAGING WHEN AVAIL, PT TO CALL SOONER PRN.; RECORDED 10/26/20 12 3:05PM BY NUVIA WELLER MA, ANNOTATI ON/NIKKO see, [facility] 6 12:46:18 Disorder of upper respirat ory system Completed 201105/21/2014 IMPRESSI ON: DESPITE 3 COURSES OF ABX STILL CONGESTE D, SAW DR HANSON AND HAD CT OF [place], [place] EE DR LUNA FOR EVAL, USE EUN POT AND NASAL SALINE AND FLONASE; RECORDED 10/26/20 12 3:05PM BY NUVIA WELLER MA, [facility]ATI ON/[facility] [place] see, [facility] 6 12:46:18 Skin sensatio n disturba nce 44924402 Completed 201105/21/2014 IMPRESSI ON: BILATERA L CHEEKS, HAD SOME MUSCLE TWITCHIN G BELOW RIGHT EYE A FEW WEEKS AGO, ONGOING TREMOR OF RIGHT THUMB FOR YEARS AND 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 PT NOTIFIED .; RECORDED 10/26/20 12 3:05PM BY NUVIA WELLER MA, ANNOTATI ON/NIKKO see, [facility] 6 12:46:18 Eruption [id number] Completed 201105/21/2014 IMPRESSI ON: LEFT SHOULDER WITH CHANGED MOLE, PT WILL SET UP APPT WITH [facility]ER[facility], SHE KNOWS TO HAVE IT CHECKED; RECORDED 10/26/20 12 3:05PM BY NUVIA WELLER MA, ARI ON[facility] ChaudhariAlessand ro null, [facility] 6 12:46:18 Screenin g for malignan t neoplasm of colon Completed 201105/21/2014 RECORDED 10/26/20 12 3:05PM BY NUVIA WELLER MA, [facility] [place] Gee'Alefredyand ro null, [facility] 6 12:46:18 Abnormal involunt gianna movement 179218859 Completed 201105/21/2014 IMPRESSI ON: EVAL BY NEUROLOG Y, GET LABS; RECORDED 10/26/20 12 3:05PM BY NUVIA WELLER MA, ARI ON/[facility] [place] ChaudhariAlessand ro null, [facility] 6 12:46:18 Umbilica l hernia 145524596 Completed 201105/21/2014 IMPRESSI ON: REPAIR NEXT WEEK WITH DR PARSONS, NO HX OF DVT RO BLEEDING ,NO FAMILY HX OF CONCERN, EKG TODAY, PT WITH NL BUN, CR, GLUCOSE AND CBC IN 01/08; RECORDED 10/26/20 12 3:05PM BY NUVIA WELLER MA, ARI ON/[facility] Vernon ChaudhariAlessand ro null, [facility] 6 12:46:18 Acute upper respirat ory infectio n 20776585 Completed 201105/21/2014 IMPRESSI ON: PRODUCTI VE COUGH X 2 WKS, WITH SINUS SXS. LUNGS SOUND CLEAR, BUT THERE IS A HX OF PNA IN THE PAST AND I WILL TX WITH ABX. PT TO F/U WITH SLEEP DOC TO SEE IF CPAP MAY BE CONTRIBU TING TO FREQUENT URIS.; RECORDED 10/26/20 12 3:05PM BY NUVIA WELLER MA, ARI ON/[facility] Vernon Gee'Alessand ro null, [facility] 6 12:46:18 Vaginiti s and vulvovag initis Completed 201105/21/2014 IMPRESSI ON: FREQUENT LY GETS YEAST INFEC SECONDAR Y TO ABX USE.; RECORDED 10/26/20 12 3:05PM BY NUVIA WELLER MA, ARI ON/[facility] Cassia Matty-Mansi wendy null, [facility] 8 13:55:35 Bronchos pasm [id number] Completed 201106/10/2014 IMPRESSI ON: MILD WHEEZING , PT TO TRY MEDS ABOVE, IF NOT BETTER TX WITH PREDNISO NE FOR 5 DAYS; RECORDED 10/26/20 12 3:05PM BY NUVIA WELLER MA, ARI ON/[facility] [place] pope null, [facility] 6 12:46:18 Acute sinusiti s 79801739 Completed 201106/10/2014 IMPRESSI ON: NEW PROBLEM TO EXAMINER , TREAT WITH AMOX FOR 14 DAYS, AVOID DECONGES TANTS, TREAT IWTH NASAL SALINE.; RECORDED 10/26/20 12 3:05PM BY NUVIA WELLER MA, ARI ON/[facility] Vernon pope null, [facility] 6 12:46:18 Screenin g for malignan t neoplasm of breast Completed 201106/10/2014 RECORDED 10/26/20 12 3:05PM BY NUVIA WELLER MA, ARI ON/[facility] Vernon pope null, [facility] 6 12:46:18 Screenin g for malignan t neoplasm of cervix Completed 201106/10/2014 RECORDED 10/26/20 12 3:05PM BY NUVIA WELLER MA, ARI ON/[facility] Vernon pope null, [facility] 6 12:46:18 Cough 65190034 Completed 201106/10/2014 IMPRESSI ON: PERSISTE NT PRODUCTI VE COUGH DESPITE COMPLETI NG 2 COURSES OF ANTIBIOT ICS, H/O PNEUMONI A 11/09; RECORDED 10/26/20 12 3:05PM BY NUVIA WELLER MA, ANNOTATI ON/NIKKO Gonzaleze Bucky see [facility] 8 13:56:26 Pain in limb 19645503 Completed 201106/10/2014 IMPRESSI ON: FOLLOWIN G INJURY OVER THE WEEKEND. WILL CHECK XRAY, ADVISED RE RICE, CONTINUE WITH PRN OTC ANAGLESI C. WILL CONTACT WITH RESULT OF IMAGING WHEN AVAIL, PT TO CALL SOONER PRN.; RECORDED 10/26/20 12 3:05PM BY NUVIA WELLER MA, ANNOTATI ON/NIKKO see [facility] 6 12:46:18 Disorder of upper respirat ory system Completed 201106/10/2014 IMPRESSI ON: DESPITE 3 COURSES OF ABX STILL CONGESTE D, SAW DR HANSON AND HAD CT [place], [place] EE DR LUNA FOR EVAL, USE EUN POT AND NASAL SALINE AND FLONASE; RECORDED 10/26/20 12 3:05PM BY NUVIA WELLER MA, ANNOTATI ON/NIKKO see, [facility] 6 12:46:18 Skin sensatio n disturba nce 51666638 Completed 201106/10/2014 IMPRESSI ON: BILATERA L CHEEKS, HAD SOME MUSCLE TWITCHIN G BELOW RIGHT EYE A FEW WEEKS AGO, ONGOING TREMOR OF RIGHT THUMB FOR YEARS AND 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 PT NOTIFIED .; RECORDED 10/26/20 12 3:05PM BY NUVIA WELLER MA, ARI ON/[facility] Loweand ro null, [facility] 6 12:46:18 Eruption [id number] Completed 201106/10/2014 IMPRESSI ON: LEFT SHOULDER WITH CHANGED MOLE, PT WILL SET UP APPT WITH [facility], SHE KNOWS TO HAVE IT CHECKED; RECORDED 10/26/20 12 3:05PM BY NUVIA WELLER MA, ARI ON/[facility] Norris ro null, [facility] 6 12:46:18 Abnormal involunt gianna movement 086226411 Completed 201106/10/2014 IMPRESSI ON: EVAL BY NEUROLOG Y, GET LABS; RECORDED 10/26/20 12 3:05PM BY NUVIA WELLER MA, ARI ON/[facility] Norris ro null, [facility] 6 12:46:18 Umbilica l hernia 679360536 Completed 201106/10/2014 IMPRESSI ON: REPAIR NEXT WEEK WITH DR PARSONS, NO HX OF DVT RO BLEEDING ,NO FAMILY HX OF CONCERN, EKG TODAY, PT WITH NL BUN, CR, GLUCOSE AND CBC IN 01/08; RECORDED 10/26/20 12 3:05PM BY NUVIA WELLER MA, ARI ON[facility] Vernon Norris ro null, [facility] 6 12:46:18 Acute upper respirat ory infectio n 96871043 Completed 201106/10/2014 IMPRESSI ON: PRODUCTI VE COUGH X 2 WKS, WITH SINUS SXS. LUNGS SOUND CLEAR, BUT THERE IS A HX OF PNA IN THE PAST AND I WILL TX WITH ABX. PT TO F/U WITH SLEEP DOC TO SEE IF CPAP MAY BE CONTRIBU TING TO FREQUENT URIS.; RECORDED 10/26/20 12 3:05PM BY NUVIA WELLER MA, ARI ON/[facility] Loweand ro null, [facility] 6 12:46:18 Vaginiti s and vulvovag initis Completed 201106/10/2014 IMPRESSI ON: FREQUENT LY GETS YEAST INFEC SECONDAR Y TO ABX USE.; RECORDED 10/26/20 12 3:05PM BY NUVIA WELLER MA, ANNOTATI ON/ADDEN DUM Cassia Bucky de leono null, [facility] 8 13:55:35 Examinat ion for suspecte d mental disorder Completed 201205/21/2014 RECORDED 12/04/19 13 9:46AM BY JONAS WOOTEN MA, ANNOTATI ON/ADDEN DUM [place] D'Alessand ro null, [facility] 6 12:46:18 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 Completed 201205/21/2014 RECORDED 12/04/19 13 9:46AM BY JONAS WOOTEN MA, ANNOTATI ON/ADDEN DUM [place] D'Alessand ro null, [facility] 6 12:46:18 Crohn's disease of large bowel 5171174 Completed 201205/21/2014 RECORDED 12/04/19 13 9:44AM BY YULIET GUERRA MA, ANNOTATI ON/ADDEN DUM [place] D'Alessand ro null, [facility] 6 12:46:18 Examinat ion for suspecte d mental disorder Completed 201206/10/2014 RECORDED 12/04/19 13 9:46AM BY JONAS WOOTEN MA, ANNOTATI ON/ADDEN DUM [place] D'Alessand ro null, [facility] 6 12:46:18 Tietze's disease 33838683 Completed 201206/10/2014 RECORDED 12/04/19 13 9:46AM BY JONAS WOOTEN MA, ANNOTATI ON/ADDEN DUM [place] D'Alessand ro null, [facility] 6 12:46:18 Crohn's disease of large bowel 7428946 Completed 201206/10/2014 RECORDED 12/04/19 13 9:44AM BY YULIET GUERRA MA, ANNOTATI ON/[facility] [place] see [facility] 6 12:46:18 Acute bronchit is 83718511 Completed 201205/21/2014 IMPRESSI ON: OVERALL SXS NEARLY RESOLVED . COUGH AND SOB IMPROVED . SHE DOES STILL C/O A CATCHIN G SENSATIO N AT THE BASE OF HER THROAT, WILL TRIGGER COUGHING FITS. THE ETIOLOGY OF THIS IS UNCLEAR TO ME AT THE MOMENT. DENIES CHEST TIGHTNES S, WHEEZING , OR SIG SOB WHEN THIS HAPPENS. DOES HAVE HX OF GERD, BUT GEN STABLE ON MEDS. ALSO HAS THIS DISCOMFO RT OVER THYROID AREA, W/U OUTLINED BELOW. SHE DOES FEEL LIKE SHE INHALERS ARE USED THEY ARE EFFECTIV E, SO I HAVE ASKED HER TO USE MORE REG X NEXT MO. SEE ME BACK THEN FOR F/U, WILL PERFORM PALMA THEN.; RECORDED 01/19/20 13 1:33PM BY JONAS WOOTEN MA, ANNOTATI ON/[facility] see [facility] 6 12:46:18 Fibromyo sitis [id number] Completed 201205/21/2014 IMPRESSI ON: WITH UPPER GIRDLE PAIN, SORENESS AND MUSCLE FATIGUE. HAS BEEN SINCE WITH RECENT BRONCHIT IS, HOWEVER TELLS ME THAT THIS HAS BEEN AN INTERMIT TENT ISSUE FOR HER X MANY YRS. NO H/A, TEMPORAL PAIN OR JAW CLAUDICA TION. WILL CHECK SED RATE THOUGH TO R/O PMR. FIBRO ALSO COMES TO MIND, HOWEVER I WOULD EXPECT HER PAIN TO BE MORE DIFFUSE. ; RECORDED 01/19/20 13 1:33PM BY JONAS WOOTEN MA, [facility]NOTATI ON/[facility] [place] see [facility] 6 12:46:18 Acute bronchit is 49446510 Completed 201206/10/2014 IMPRESSI ON: OVERALL SXS NEARLY RESOLVED . COUGH AND SOB IMPROVED . SHE DOES STILL C/O A CATCHIN G SENSATIO N AT THE BASE OF HER THROAT, WILL TRIGGER COUGHING FITS. THE ETIOLOGY OF THIS IS UNCLEAR TO ME AT THE MOMENT. DENIES CHEST TIGHTNES S, WHEEZING , OR SIG SOB WHEN THIS HAPPENS. DOES HAVE HX OF GERD, BUT GEN STABLE ON MEDS. ALSO HAS THIS DISCOMFO RT OVER THYROID AREA, W/U OUTLINED BELOW. SHE DOES FEEL LIKE SHE INHALERS ARE USED THEY ARE EFFECTIV E, SO I HAVE ASKED HER TO USE MORE REG X NEXT MO. SEE ME BACK THEN FOR F/U, WILL PERFORM PALMA THEN.; RECORDED 01/19/20 13 1:33PM BY JONAS WOOTEN MA, ARI ON/NIKKO see, [facility] 6 12:46:18 Fibromyo sitis 50909321 Completed 201206/10/2014 IMPRESSI ON: WITH UPPER GIRDLE PAIN, SORENESS AND MUSCLE FATIGUE. HAS BEEN SINCE WITH RECENT BRONCHIT IS, HOWEVER TELLS ME THAT THIS HAS BEEN AN INTERMIT TENT ISSUE FOR HER X MANY YRS. NO H/A, TEMPORAL PAIN OR JAW CLAUDICA TION. WILL CHECK SED RATE THOUGH TO R/O PMR. FIBRO ALSO COMES TO MIND, HOWEVER I WOULD EXPECT HER PAIN TO BE MORE DIFFUSE. ; RECORDED 01/19/20 13 1:33PM BY JONAS WOOTEN MA, ANNOTATI ON/NIKKO see, [facility] 6 12:46:18 Head and neck swelling Completed 201205/21/2014 IMPRESSI ON: PT WITH LONG HX OF SENSATIO N OF NECK SWELLING , SENSITIV ITY, SOMETHIN G CATCHING IN HER LOWER TRACHEA ALONG WITH ITCHING/ BURNING SENSATIO N OVER STERNUM INTO SHOULDER S AND UPPER BACK. HAS BEEN R/O FOR ALLERGIE S, THYROID CYST FOUND ON US FELT NOT TO BE A CONTRIBU TING FACTOR BY ENDO, RESP SXS NOW RESOLVED , GERD FELT TO BE WELL CONTROLL ED, SED RATE OF 22 ALONG WITH SXS NOT CLEARLY CONSISTE NT WITH PMR. ETIOLOGY UNCLEAR, AT THIS POINT I THINK IT WOULD HELPFUL TO INVOLVE ENT. WE WILL ARRANGE APPT AND CONTACT PT WITH DETAILS. ; RECORDED 04/20/20 13 12:52PM BY NUVIA WELLER MA, ARI ON/NIKKO see, [facility] 6 12:46:18 Head and neck swelling Completed 201206/10/2014 IMPRESSI ON: PT WITH LONG HX OF SENSATIO N OF NECK SWELLING , SENSITIV ITY, SOMETHIN G CATCHING IN HER LOWER TRACHEA ALONG WITH ITCHING/ BURNING SENSATIO N OVER STERNUM INTO SHOULDER S AND UPPER BACK. HAS BEEN R/O FOR ALLERGIE S, THYROID CYST FOUND ON US FELT NOT TO BE A CONTRIBU TING FACTOR BY ENDO, RESP SXS NOW RESOLVED , GERD FELT TO BE WELL CONTROLL ED, SED RATE OF 22 ALONG WITH SXS NOT CLEARLY CONSISTE NT WITH PMR. ETIOLOGY UNCLEAR, AT THIS POINT I THINK IT WOULD HELPFUL TO INVOLVE ENT. WE WILL ARRANGE APPT AND CONTACT PT WITH DETAILS. ; RECORDED 04/20/20 13 12:52PM BY NUVIA WELLER MA, ANNOTATI ON/[facility] CASEY see, [facility] 6 12:46:18 Tobacco user [phone] Completed 201205/21/2014 RECORDED 08/06/20 13 8:29AM BY ARI HILL/[facility] Cassia see [facility] 8 13:55:23 History of clinical finding in subject [id number] Completed 201207/28/2018 Cassia see [facility] 8 13:56:17 Adult health examinat ion Completed 201205/21/2014 IMPRESSI ON: PAP , MAMMO AND COLONOSC OPY UTD, IS WORKING ON WEIGHT LOSS AND EXERCISE . NANCY MCCLELLAN COUNTS; RECORDED 08/06/20 13 8:29AM BY ARI HILL/OSMANI Guzman, [facility] 8 13:26:49 Optic disc finding Completed 201205/21/2014 IMPRESSI ON: EYE DOC CALLED STATED PT WITH BILATERA L PAPILLED TANG, I SPOKE TOT PT TODAY, SHE IS HAVIGN SOEM INTERMIT TANT RIGHT EYE VISION SYMPTOMS LIKE LOOKING THROUGH A SCREEN BUT THEN IT RESOLVES , ALSO SOME MILD DAILY BARRERA AND MILD VERTIGO ONLY WHEN LAYS IN BED. PT KNOWS TO BE CAUTIOUS ABOUT DRIVING, FOR NOW SHE FEELS SHE IS SAFE DRIVING, NO VERTIOG UNLESS LAYS DOWN IN BED, FVISION CHANGE VERY ADDI RY AND STILL ABLE TO SEE IFNE, IW ILL GET AN MRI FO THE BRAINA ND HAVE PT SEE JUAN THIS MONDAY 08/06 AT 8:30 PT IS AWARE OF APPT; RECORDED 08/06/20 13 8:28AM BY ARI HILL ON/NIKKO see, [facility] 6 12:46:18 Sleep apnea [id number] Completed 201205/21/2014 IMPRESSI ON: ON CPAP, IT HELPS; RECORDED 08/06/20 13 8:29AM BY ARI HILL ON/NIKKO see, [facility] 6 12:46:18 Tobacco user [id number] Completed 201206/10/2014 RECORDED 08/06/20 13 8:29AM BY ARI HILL ON/NIKKO nguyen null, [facility] 8 13:55:23 Adult health examinat ion Completed 201206/10/2014 IMPRESSI ON: PAP , MAMMO AND COLONOSC OPY UTD, IS WORKING ON WEIGHT LOSS AND EXERCISE . NANCY MCCLELLAN COUNTS; RECORDED 08/06/20 13 8:29AM BY ARI HILL ON/OSMANI Guzman, [facility] 8 13:26:49 Optic disc finding Completed 201206/10/2014 IMPRESSI ON: EYE DOC CALLED STATED PT WITH LORRIE Rubio PAPILLED TANG, I SPOKE TOT PT TODAY, SHE IS HAVIGN SOEM INTERMIT TANT RIGHT EYE VISION SYMPTOMS LIKE LOOKING THROUGH A SCREEN BUT THEN IT RESOLVES , ALSO SOME MILD DAILY BARRERA AND MILD VERTIGO ONLY WHEN LAYS IN BED. PT KNOWS TO BE CAUTIOUS ABOUT DRIVING, FOR NOW SHE FEELS SHE IS SAFE DRIVING, NO VERTIOG UNLESS LAYS DOWN IN BED, FVISION CHANGE VERY ADDI RY AND STILL ABLE TO SEE KOLTON IW ILL GET AN MRI FO THE BRAINA ND HAVE PT SEE JUAN THIS MONDAY 08/06 AT 8:30 PT IS AWARE OF APPT; RECORDED 08/06/20 13 8:28AM BY ARI HILL ON/ADDEN DUM [place] see [facility] 6 12:46:18 Sleep apnea [id number] Completed 201206/10/2014 SHERIFI ON: ON CPAP, IT HELPS; RECORDED 08/06/20 13 8:29AM BY ARI HILL ON/ADDEN CASEY see [facility] 6 12:46:18 Screenin g for malignan t neoplasm of breast Completed 201301/14/2015 RECORDED 01/26/20 14 7:19AM BY ADALID VILLANUEVA, HISTORIC AL SUMMARY [place] see [facility] 6 12:46:18 Headache [id number] Completed 201307/28/2018 Cassia see [facility] 8 13:55:50 Pure hypercho lesterol emia [id number] Completed 201307/28/2018 Cassia see [facility] 8 13:55:52 Laborato ry procedur e performe d [id number] Completed 201301/14/2015 RECORDED 04/26/20 14 10:15AM BY LESLY GREGORIO, OFFICE VISIT [place] see [facility] 6 12:46:18 Tobacco user [id number] Completed 201307/28/2018 Cassia see [facility] 8 13:55:23 Gastroes ophageal reflux disease [id number] Completed 201307/28/2018 IMPRESSI ON: STABLE ON PPI, HAS BEEN FOLLOWED BY DR. PROCTOR IN THE PAST.; RECORDED 04/26/20 14 10:32AM BY LESLY GREGORIO, OFFICE VISIT Cassia see [facility] 8 13:55:42 Crohn's disease 79136869 Active 2013 IMPRESSI ON: NO MEDS OR SYMPTOMS , LAST 2 COLONOSC PIES WITHOUT DZ; RECORDED 04/26/20 14 10:15AM BY LESLY GREGORIO, OFFICE VISIT Not Available [facility] 0 15:44:20 Dyssomni a [id number] Completed 201307/28/2018 STORY: TX WITH CPAP; IMPRESSI ON: DOING WELL, USES IT FAITHFUL LY; RECORDED 04/26/20 14 10:15AM BY LESLY GREGORIO, OFFICE VISIT Cassia see [facility] 8 13:56:20 Screenin g for malignan t neoplasm of colon Completed 201301/14/2015 RECORDED 04/26/20 14 10:15AM BY LESLY GREGORIO, OFFICE VISIT [place] [facility] 6 12:46:18 Visual disturba nce [id number] Completed 201307/28/2018 IMPRESSI ON: NON-FOCA L NEURO EXAM, MRI SCHEDULE D FOR TODAY; RECORDED 04/26/20 14 10:15AM BY LESLY GREGORIO, OFFICE VISIT Cassia see [facility] 8 13:56:29 Malaise and fatigue [id number] Completed 201307/28/2018 Cassia see [facility] 8 13:55:55 Adult health examinat ion Completed 201307/28/2018 IMPRESSI ON: PTTO SET UP PAP, HAD ABLATION YEARS AGO, NO BLEEDING ; RECORDED 04/26/20 14 10:57AM BY CASSIA Talley MD, OFFICE VISIT [facility] 8 13:26:49 Pruritic disorder [id number] Completed 201307/28/2018 IMPRESSI ON: ALL OVER, HAD LABS FROM DERM AND VISIT WITH DERM, NO ANSWERS, USE LOTION AND CHECK BILI; RECORDED 04/26/20 14 10:57AM BY CASSIA Talley MD, OFFICE VISIT Cassia see [facility] 8 13:55:59 Morbid obesity [id number] Completed 201307/28/2018 IMPRESSI ON: WORKIGN ON EATING; RECORDED 04/26/20 14 10:57AM BY CASSIA Talley MD, OFFICE VISIT Cassiatobias StarrMansi see [facility] 8 13:55:47 Hernia of abdomina l cavity [id number] Active 2018 Not Available [facility] 0 15:44:20 Problem Notes None recorded. Procedures Surgical History Date Name Laterality Status Provider Name and Address Organization Details Recorded Time 023 Colonoscopy completed Sylvia Baez [facility] 11/10/2022 10:07:17 023 Endoscopic us exam esoph completed Sylvia Baez [facility] 11/10/2022 10:08:12 022 Most Recent Mammogram completed Sylvia Baez [facility] 08/20/2022 13:55:59 021 Mammogram Screening completed Adriana Villanueva [facility] 12/24/2020 11:04:39 020 Date of Last Colonoscopy completed Adriana Villanueva [facility] 11/22/2019 16:30:01 019 Mammogram one breast completed Adriana Villanueva [facility] 03/02/2019 15:35:09 019 hernia repair completed Lesly Gregorio MA [facility] 12/29/2018 10:01:42 018 Ultrasound breast limited completed Mahnaz You [facility] 09/01/2018 16:51:02 017 Mammogram one breast completed Yuliet andujar MA [facility] 07/27/2017 13:03:23 017 Date of Last Pap Smear completed Lesly Gregorio MA [facility] 09/05/2018 11:05:01 016 Gastrointestinal Surgery completed Lesly Gregorio [facility] 07/26/2022 13:56:48 015 Hernia Repair completed Lesly Gregorio MA [facility] 07/26/2022 13:56:48 009 Cholecystectomy completed Lesly Gregorio [facility] 07/26/2022 13:56:48 Endometrial Ablation completed Lianna Aguilar MA [facility] 01/15/2015 09:44:34 Imaging Results None recorded. Procedure Notes None recorded. Medical Equipment None Reported. Allergies Allergen ID Allergen Name Allergen Category Reaction Reaction Severity Criticality Documentation Date Start Date Code Code System Note Provider Name and Address Organization Details Recorded Time 8817 codeine medicatio n nausea severe Not available 05/14/20142013 2670 RxNorm Adriana see [facility] 6 10:40:30 Medications Name Sig Start Date Stop Date Status Note LastModified by Organization Details LastModified Time amoxicill in 500 mg capsule 10/19 completed Not Available Not Available Not Available Carafate 100 mg/mL oral suspensio n Take 10 mL 4 times a day by oral route. 04/10 completed Not Available Not Available Not Available fluconazo le 150 mg tablet one tab daily for 3 days active Not Available Not Available No t Available benzonata te 200 mg capsule Take 1 capsule 3 times a day by oral route as needed for 10 days. 07/21 completed Not Available Not Available Not Available hydrocodo ne 5 mg-acetam inophen 325 mg tablet active Not Available Not Available Not Available prednison e 20 mg tablet DAILY 11/10 completed RECORDED 11/21/19 10 8:58AM BY CASSIA Talley MD, MEDICATI ON AUTO-KEVIN CTIVATIO N; Not Available Not Available Not Available Prilosec 20 mg capsule,d elayed release BID 02/05 completed RECORDED 02/06/20 10 9:13AM BY YULIET GUERRA MA, OFFICE VISIT; Not Available Not Available Not Available Zithromax Z-Crescencio 250 mg tablet one pack as directed 12/29 completed Not Available Not Available Not Available Advair Diskus 100 mcg-50 mcg/dose powder for inhalatio n 2 TIMES PER DAY 12/18 completed RECORDED 12/21/19 13 2:01PM BY PANCHO WELLER PA-C, MEDICATI ON AUTO-KEVIN CTIVATIO N; Not Available Not Available Not Available metronida zole 500 mg tablet Take 1 tablet every 8 hours by oral route for 7 days. active Not Available Not Available No t Available ciproflox acin 500 mg tablet Take 1 tablet every 12 hours by oral route for 7 days. active Not Available Not Available No t Available sulfameth oxazole 800 mg-trimet hoprim 160 mg tablet Take 1 tablet every 12 hours by oral route for 10 days. 07/21 completed Not Available Not Available Not Available Medrol 4 mg tablet DAILY 03/30 completed RECORDED 03/31/20 10 2:59PM BY JE FARFAN PA-C, MEDICATI ON AUTO-KEVIN CTIVATIO N; Not Available Not Available Not Available calcium 600 mg (as calcium carbonate 1,500 mg) tablet DAILY 12/16 completed RECORDED 12/16/19 12 1:26PM BY LESLY GREGORIO, OFFICE VISIT; Not Available Not Available Not Available Fluticaso ne Propionat e (Inhal) 50 mcg/BLIST inhl powd DAILYL 12/16 completed RECORDED 12/16/19 12 1:26PM BY LESLY GREGORIO, OFFICE VISIT; Not Available Not Available Not Available amoxicill in 875 mg tablet BID 02/19 completed RECORDED 03/04/20 10 3:53PM BY CASSIA Talley MD, MEDICATI ON AUTO-KEVIN CTIVATIO N; Not Available Not Available Not Available omeprazol e ER 20 mg capsule,e xtended release 2014 active Not Available Not Available Not Avai lable erythromy janusz 5 mg/gram (0.5 %) eye ointment APPLY 1 CM RIBBON INTO THE LOWER CONJUNCT IVAL SAC(S) IN THE AFFECTED EYE(S) BY OPHTHALM IC ROUTE 3 TIMES PER DAY x 1 week 07/28 completed Not Available Not Available Not Available Advil 200 mg tablet Take 3 tablets every 6 hours by oral route. 07/21 completed Not Available Not Available Not Available levofloxa janusz 500 mg tablet DAILY 04/03 completed RECORDED 04/03/20 10 11:23AM BY JE FARFAN PA-C, MEDICATI ON AUTO-KEVIN CTIVATIO N; Not Available Not Available Not Available albuterol sulfate HFA 90 mcg/actua tion aerosol inhaler INHALE TWO PUFFS BY MOUTH EVERY 4 HOURS active Not Available Not Available No t Available fluticaso ne propionat e 50 mcg/actua tion nasal spray,sada pension active Not Available Not Available Not Available doxycycli ne hyclate 100 mg tablet Take 1 tablet twice a day by oral route for 10 days. active Not Available Not Available No t Available loratadin e 10 mg tablet Take 1 tablet every day by oral route for 30 days. active Not Available Not Available No t Available amoxicill in 875 mg-potass ium clavulana te 125 mg tablet BID 02/26 completed RECORDED 03/04/20 10 3:53PM BY CASSIA Talley MD, MEDICATI ON AUTO-KEVIN CTIVATIO N; Not Available Not Available Not Available albuterol (refill) 90 mcg/actua tion aerosol inhaler EVERY 4 HOURS PRN 01/18 completed RECORDED 01/19/20 13 1:37PM BY JONAS WOOTEN MA, OFFICE VISIT; Not Available Not Available Not Available Senna Plus 8.6 mg-50 mg tablet Take 2 tablets every day by oral route. 07/26 completed Not Available Not Available Not Available Dulcolax Stool Softener (docusate ) 100 mg capsule Take 1 capsule every day by oral route. 07/26 completed Not Available Not Available Not Available magnesium 1 po qd active Not Available Not Av ailable Not Available One-A-Day Womens Formula 1 Tablet PO QD active Not Available Not Available No t Available Fish Oil DAILY 12/16 completed RECORDED 12/16/19 12 1:26PM BY LESLY GREGORIO, OFFICE VISIT; Not Available Not Available Not Available Vitamin D3 1000 po qd active Not Available Not Available No t Available Daily Multi Vitamin/M inerals QD active RECORDED 08/06/20 13 8:29AM BY HEIDY GUZMAN I, OFFICE VISIT; Not Available Not Available Not Available Juice Plus Fibre TWO TIMES DAILY active RECORDED 08/06/20 13 8:29AM BY HEIDY GUZMAN I, OFFICE VISIT; Not Available Not Available Not Available multivita min 1 qd 10/19 completed Not Available Not Available Not Available Mucinex DM DAILY 12/21 completed RECORDED 12/21/19 13 2:52PM BY JONAS WOOTEN MA, OFFICE VISIT; Not Available Not Available Not Available cholecalc iferol (vitamin D3) 25 mcg (1,000 unit) tablet DAILY 12/21 completed RECORDED 12/21/19 13 2:52PM BY JONAS WOOTEN MA, OFFICE VISIT; Not Available Not Available Not Available oxycodone 10 mg tablet active Not Available Not Available Not Available Probiotic 10/19 completed Not Available Not Available Not Available Super Enzyme 1 po qd active Not Available Not Available Not Available omega 3 183.3 mg-dha 75 mg-epa 91.6 mg-fish oil 306 mg capsule Take 2 capsules every day by oral route. 09/01 completed Not Available Not Available Not Available omega 3 360 mg-dha 108 mg-epa 180 mg-fish oil 1,200 mg capsule Take 1 capsule every day by oral route. active Not Available Not Available No t Available Vitals Date Recorded Body height Body mass index (BMI) Body weight Oxygen saturation Oxygen saturation in Arterial blood by Pulse oximetry Heart rate Body temperature Systolic And Diastolic Provider Name and Address Organization Details Last Updated DateTime 9 157.48 cm 38.1 kg/m2 31201.3 1 g 100 % 100 % 68 /min 97.8 [degF] 121/67 mm[Hg] Lesly Gregorio MA [facility] 9 10:05:24 Date Recorded Body height Body mass index (BMI) Body weight Oxygen saturation Oxygen saturation in Arterial blood by Pulse oximetry Heart rate Body temperature Systolic And Diastolic Provider Name and Address Organization Details Last Updated DateTime 2 157.48 cm 48.3 kg/m2 859371. 09 g 98 % 98 % 75 /min 98.24 [degF] 123/75 mm[Hg] Lesly Gregorio MA [facility] 2 14:02:37 Social History Question Answer Notes LastModified by Organizat ion Details LastModified Time Tobacco Smoking Status Former Smoker Lianna Aguilar [facility] see [facility] 01/15/2015 09:51:22 Animal Exposure? No [email or web address] Informat ion not available 07/26/2022 Is Blood Transfusion Acceptable In An Emergency? Yes [email or web address] Information not available 05/09/2015 What Is Your Level Of Caffeine Consumption? Moderate [email or web address] Information not available 05/09/2015 How Much Tobacco Do You Chew? None [email or web address] Information not available 07/26/2022 What Type Of Diet Are You Following? REGULAR [email or web address] Information not available 05/09/2015 Which Illicit Or Recreational Drugs Have You Used? Cannibus. [email or web address] Information not available 07/26/2022 Education Post Graduate [email or web address] Information not available 07/26/2022 Have There Been Any Changes To Your Family Or Social Situation? No [email or web address] Information no t available 07/26/2022 When Did You Quit Smoking? 16+yearssince lastcigarette [email or web address] Information not available 07/26/2022 How Many Days In The Past Year Have You Had A Heavy Drinking Consumption (4+ Female, 5+ Male)? 0 Information no t available 05/09/2015 Are There Any Guns Present In Your Home? No [email or web address] Information not available 07/26/2022 What Is Your Home Situation? Other [email or web address] Information not available 07/26/2022 Legally Blind In One Or Both Eyes? No Information no t available 07/26/2022 Live Alone Or With Others? Alone [email or web address] Information not available 07/26/2022 Do You Take Precautions To Prevent Distracted Driving? Yes [email or web address] Information not available 07/23/2016 How Often Do You Need To Have Someone Help You When You Read Instructions, Pamphlets, Or Other Written Material From Your Doctor Or Pharmacy? Never [email or web address] Information not available 07/26/2022 Have You Served In The ? No [email or web address] Information not available 07/23/2016 Marital Status Single [email or web address] Informatio n not available 07/26/2022 What Was The Date Of Your Most Recent Tobacco Screening? 07/26/2022 [email or web address] Information not available 07/26/2022 Total Number Of Stairs In Home 20 [email or web address] Information not available 07/26/2022 How Many Children Do You Have? 0 [email or web address] Information not available 07/26/2022 What Is Your Current Pack Years? 20-29packyear s [email or web address] Information not available 07/26/2022 Difficulty Reading? Yes [email or web address] Information not available 07/26/2022 What Is Your Relationship Status? Single [email or web address] Information not available 07/26/2022 Do You Use Your Seat Belt Or Car Seat Routinely? Yes [email or web address] Information not available 07/26/2022 Seat Belts Used Routinely Yes [email or web address] Information not available 07/26/2022 Are You Sexually Active? No [email or web address] Information not available 05/09/2015 Smoke Alarm In Home Yes [email or web address] Information not available 07/26/2022 Do You Have Smoke And Carbon Monoxide Detectors In Your Home? Yes [email or web address] Information not available 07/26/2022 At What Age Did You Start Smoking Tobacco? 14 [email or web address] Information not available 07/26/2022 Are You Passively Exposed To Smoke? No [email or web address] Information no t available 07/26/2022 How Much Tobacco Do You Smoke? 1 PPD [email or web address] Information not available 07/23/2016 Do You Use Sunscreen Routinely? Yes [email or web address] Information not available 05/09/2015 How Many Years Have You Smoked Tobacco? 28 [email or web address] Information not available 07/26/2022 Do You Have Difficulty Walking Or Climbing Stairs? No [email or web address] Information not available 07/26/2022 Sex: Unknown Functional Status Question Answer Note LastModified by Organizat ion Details LastModified Time Do you use any illicit or recreational drugs? No [email or web address] Information not available 07/26/2022 Do you or have you ever used any other forms of tobacco or nicotine? No [email or web address] Information not available 07/26/2022 What is your level of alcohol consumption? Occasional Information not available 05/09/2015 Do you or have you ever used smokeless tobacco? Never used smokeless tobacco ivegupre89 Information not available 07/26/2022 Are you currently employed? Yes [email or web address] Information not available 05/09/2015 Difficulty driving at night? No [email or web address] Information not available 07/26/2022 Are you able to walk independently without assistance or assistive devices? YESWOREST Information not available 07/26/2022 Are you able to care for yourself independently? 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 No [email or web address] Information not available 07/26/2022 What is your exercise level? Occasional [email or web address] Information not available 07/23/2016 Mental Status Question Answer Note LastModified by Organization D etails LastModified Time Do you have difficulty concentrating, remembering or making decisions? No [email or web address] Information no t available 07/26/2022 Family History Relationship Description Onset Age of this Age Resolved Age Notes LastModified by Organization Details LastModified Time Unspecified Relation Malignant neoplasm of breast cousin [email or web address] Not available 10:19:17 Mother Diabetes mellitus 69 [email or web address] Not available 10:19:17 Mother Obesity 69 [email or web address] Not availa ble 03/20/2016 10:19:17 Father Arthritis 84 [email or web address] Not avai lable 03/20/2016 10:19:17 Father Malignant neoplasm of colon 75 84 [email or web address] Not available 05/09 09:17:28 Father Heart disease 60 84 [email or web address] Not available 05/09 09:17:28 Medical History Condition Response Other N Gout N Blood Diseases N Kidney Stones N Hyperthyroidism N Breast Cancer N Lung Disease N COPD N Depression N Hypothyroidism N Defects or Inherited Disease N Anesthesia Complications N Headaches/Migraines N Varicose Veins N Anxiety Disorder N Obesity Y Vision or Eye Problems Y Arthritis Y Head Injury/Concussion N Polyps Y Infertility N Congenital Anomalies N Acid Reflux (GERD) Y Cancer N Stroke N ADHD N Endometriosis N High Cholesterol N Liver Disease N Fibromyalgia N Kidney Disease N Heart Problems N Ear or Hearing Problems N Hospitalizations N Thyroid Problems N GI Problems Y Acne N Skin Problems N Eating Disorder N Anemia N Constipation N Bladder Problems N Mental Illness N Ovarian Cancer N Diabetes N Blood Transfusions N Seizures/Epilepsy N Tuberculosis N AIDS/HIV N Congestive Heart Failure (CHF) N Eczema N Diverticulitis Y Abuse/Domestic Violence N Allergies N Asthma N Reflux/GERD N Hepatitis N Pulmonary Embolism N Hypertension N Osteoporosis N Chicken Pox N Autism Spectrum Disorder (ASD) N Gynecological History Statement/Question Response Abnormal Pap N Date of Last Colonoscopy 11/20/2019 Sexually Active? N STIs/STDs N HPV Vaccine N Date of Last Pap Smear 06/22/2017 Sexual Problems? N Age at Menarche 12 Most Recent Mammogram 08/20/2022 Obstetrics History GPAL:G 0 P 0 0 0 0 Immunizations Vaccine Type Date Status Note Provider Nam e and Address Organization Details Recorded Time Influenza, MDCK, quadrivalent, PF 07/25/2020 completed [facility] 07/26/2022 14:03:05 Tdap 04/21/2022 completed [facility] 07/26/2022 14:03:05 COVID-19, mRNA, LNP-S, PF, 100 mcg/0.5mL dose or 50 mcg/0.25mL dose 12/08/2020 completed [facility] 07/26/2022 14:03:05 MMR 03/21/2019 completed [facility] 07/26/2022 14:03:06 Influenza, split virus, quadrivalent, PF 07/28/2018 completed [facility] 07/26/2022 14:03:06 Influenza, split virus, quadrivalent, PF 08/22/2021 completed [facility] 07/26/2022 14:03:06 COVID-19, mRNA, LNP-S, PF, 100 mcg/0.5mL dose or 50 mcg/0.25mL dose 09/03/2021 completed [facility] 07/26/2022 14:03:06 Influenza, split virus, quadrivalent, PF 12/20/2019 completed [facility] 07/26/2022 14:03:06 MMR 02/19/2019 completed [facility] 07/26/2022 14:03:06 Influenza, MDCK, quadrivalent, PF 07/19/2022 completed [facility] 07/26/2022 14:03:06 COVID-19, mRNA, LNP-S, PF, 100 mcg/0.5mL dose or 50 mcg/0.25mL dose 11/10/2020 completed [facility] 07/26/2022 14:03:06 COVID-19, mRNA, LNP-S, PF, 30 mcg/0.3 mL dose 07/19/2022 completed [facility] 07/26/2022 14:06:47 Influenza, split virus, quadrivalent, PF 07/23/2016 completed Not Available [facility] 0 02:22:04 Tdap 03/20/2009 completed Adriana see [facility] 08/05/2020 15:50:00 Past Encounters Encounter ID Performer Location Encounter Start Date Encounter Closed Date Diagnosis/Indication Diagnosis SNOMED-CT Code Diagnosis ICD10 Code Diagnosis IMO Codes Diagnosis Note [id number] [facility] [address] [facility] [address] [facility] [place] [address] 09/29/2007 00:00:00 [id number] [facility] [place] [address] [place] [address] 03/20/2009 00:00:00 [id number] [facility] er[place] [address] [address] [place] [address] 11/05/2009 00:00:00 [id number] [facility] erce [address] [facility] [address] [facility] [address] [address] [place] [address] 11/28/2009 00:00:00 [id number] [facility] erce [address] [facility] [address] [facility] [address] [address] [place] [address] 02/05/2010 00:00:00 [id number] [facility] er[facility] [address] [address] [place] [address] 03/13/2010 00:00:00 [id number] [facility] er[facility] [address] [facility] [place] [address] 04/09/2010 00:00:00 [id number] [facility] er[facility] [address] [facility] [place] [address] 02/19/2011 00:00:00 [id number] [facility] erce [address] [facility] [place] [address] 04/14/2011 00:00:00 [id number] [facility] er[facility] [address] [facility] [place] [address] 12/16/2011 00:00:00 [id number] [facility] [facility] [address] [facility] [address] [place] [address] 02/10/2012 00:00:00 [id number] [employer]ce [address] [facility] [place] [address] 10/26/2012 00:00:00 [id number] [employer] [address] [facility] [place] [address] 12/04/2012 00:00:00 [id number] [employer] erce [address] [facility] [address] [place] [address] 12/21/2012 00:00:00 [id number] [employer] [address] [facility] [place], [place] [address] 01/18/2013 00:00:00 [id number] [employer]ce [address] [facility] [place], [place] [address] 04/20/2013 00:00:00 [id number] [employer]ce [address] [facility] [place], [place] [address] 08/06/2013 00:00:00 [id number] [employer] erce [address] [facility] [place] [address] 04/26/2014 00:00:00 [id number] HERRERA Burt Main Office [address] [facility] [address] [place] [address] 01/15/2015 09:39:02 01/15/2015 10:24:19 Diverticulitis of colon 246325856 most likely cause. will have her f/u 2 days to recheck. clear liquid diet Crohn's disease 25616407 h er crohns has been inactive for a while. will reassess on tuesday if she is not improving [id number] HERRERA Burt Main Office [address] [facility] [address] [place] [address] 01/17/2015 08:36:58 01/17/2015 09:14:58 Diverticulitis of colon 862953697 improving. she will slowly advance diet. we discussed advantage/ disadvanta ge of doing CT today to confirm diagnosis. since she is improving she will defer CT for now. If pain gets worse or gets fever over the weekend she will go to ER or call production quality analyst [id number] Cassia nguyen MD Main Office [address] [facility] [address] [place] [address] 05/09/2015 09:04:16 05/09/2015 10:06:14 Adult health examination [id number] all screening is utd, will start to exercise when hernia repair heals Body mass index 40+ - severely obese 079552892 pt to seet up appt iwth behavioral provider, long talk today about relationsh ip to food Gastroesop hageal reflux disease 156149333 Fatigue 45453497 check lab s Knee pain 92057149 achey, most likely due to obesity Hypercholesterolemia 50959693 Sleep apnea 25849866 uses CPAP [id number] Marily Arriaga PA-C Main Office [address] [address] [place] [address] 03/15/2016 15:50:45 03/15/2016 16:14:52 Cough 22784796 R05 Persistent cough likely due to laryngeal irritation . Will try cough suppressan ts for now and nasal saline solution. If not improved, pt. might need to have chest xRays and spirometry . Laryngitis 85773316 J04. 0 630756 Vernon pope MD Main Office [address] [address] [place] [address] 03/20/2016 10:04:07 03/20/2016 11:05:07 Cough 47632248 R05 Sinusitis 94499890 J32.9 Vaginitis and vulvovaginitis 408571781 N76.0 175141 Cassia nguyen MD Main Office [address] [address] [place] [address] 05/12/2016 14:27:43 05/12/2016 15:40:50 Cough 98129345 R05 sounds post viral, no evidence of infection, neg CXR, tessalon michel for post viral cough Cellulitis 058406372 L03 .[address] Lutz and she felt tx with bactrim and see DR Parsons tomorrow, pt to ER if any GI obstructiv e symptoms, vomiting, worsening pain, fever [id number] Cassia nguyen MD Main Office [address] [address] [place] [address] 05/21/2016 08:44:12 05/21/2016 11:21:31 [id number] Cassia nguyen MD Main Office [address] [place] [address] 07/23/2016 13:27:39 07/23/2016 14:35:21 Adult health examination 771844733 Z00.00 all screening is utd, will start to exercise when hernia repair heals Needs infl uenza immunization 181336948 Z23 Body mass index 40+ - severely obese 703395811 Z68.43 pt to set up appt with behavioral provider, long talk today about relationsh ip to food Hernia of abdominal wall 272539116 K43.6 had mesh removed due to an infection, healing wel Knee pain 73080833 M25.5 69 achey, most likely due to obesity 238647 Brian Rust MD Main Office [address] [facility] [address] [place] [address] 10/19/2017 13:24:17 10/19/2017 14:31:11 Acute pharyngitis 088330568 J02.9 Swallowing painful 03577 002 R13.[address] Proctor's office at the end of the week if her pain is not improving. [id number] Monroe Arriaga PA-C Main Office [address] [facility] [address] [place] [address] 04/10/2018 15:12:04 04/10/2018 16:16:54 Hordeolum externum of lower eyelid 053864569 H00.012 H00.015 Orbital swelling 5075791 H05.229 lower eye orbit region L> R -- rec cool compresses prn, will cont to monitor ? malar festoons according to [employer] research -- if worse, may consider eye md vs derm eval Fatigue 16870866 R53.83 Seasonal allergy 2409346 04 J30.2 ? eye allergies triggered process, rubbed eyes - dev. stye Body mass index 40+ - severely obese 596443251 E66.01 Z68.41 has lost over 80 lbs - tommy thru hypnosis - congratula gray pt and encouraged her to continue [id number] Cassia nguyen MD Main Office [address] [facility] [address] [place] [address] 07/28/2018 13:08:27 07/28/2018 14:12:47 Adult health examination 925662104 Z00.00 all screening is utd, will start to exercise when hernia repair heals Needs infl uenza immunization 959561163 Z23 Fatigue 88616343 R53.83 check labs History of polyp of colon 892778285 Z86.010 and father with colon cancer, due now since every 3 years but wants to wait until after hernia repair Hernia of abdominal cavity 58280892 K46.9 abdominal, has had 2 bowel obstructio ns in past 6 months due to hernia [id number] Cassia nguyen MD Main Office [address] [address] 09/01/2018 10:27:13 09/01/2018 11:05:20 Pneumonia 661685466 J18.9 productive cough with thick sputum in ex smoker with fatigue and an area of back pain, will tx for pneumonia, if not improving pt to get CXR, hydration and rest [id number] Cassia nguyen MD Main Office [address] [address] 12/29/2018 09:54:50 12/29/2018 10:49:33 Crohn's disease 37274693 K50.90 has not been on meds for years, not active on past 2 scopes pt will see Tfifany and discuss ? need for UGI with SBFT. Sleep apnea 44585490 G47 .30 uses CPAP History of bowel obstruction 9661275648 46179 Z87.19 a few weeks after hernia repair this was end of October no problem since multiple GI surgeries, discuss diet and keeping good transit time pt o work on core strength [id number] Alfredo Xie MD Main Office [address] [address] 02/19/2019 14:56:28 02/19/2019 15:21:12 Administration of viral vaccine 85930051 Z23 [id number] Brian Rust MD Main Office [address] [address] 03/21/2019 14:59:30 03/21/2019 15:42:39 Administration of viral vaccine 08671323 Z23 240873 Cassia nguyen MD Main Office [address] [address] 12/20/2019 08:57:13 12/20/2019 09:23:28 Needs influenza immunization 364815132 Z23 [id number] Cassia nguyen MD Main Office [address] [facility] [address] [facility] [place] [address] 07/26/2022 13:51:12 07/26/2022 15:02:50 Adult health examination 533512957 Z00.00 Pt is in good general health. Social and family history reviewed. Immunizati ons reviewed, advised annual flu shot, covid booster, shingrix, Td if not given already. She is upt to date on dental and eye providers, mammogram up to date, colon up to date, Reviewed diet and exercise. Sleep apnea 63058835 G47 .30 sees sleep specialist Screening for malignant neoplasm of breast 300070758 Z12.39 due for this, will make appt Screening for malignant neoplasm of cervix 499465762 Z12.4 pt due Crohn's disease 30610510 K50.90 in remission at this time, colon up to date, father had colon cancer, on a 5 yr recall due 2024 Increased frequency of urination 046199489 R35.0 pt to consider urology evaluation , declines for now. Excessive weight gain 22 7381108 R63.5 check labs, pt is aware of wt gain and need to work on this, trying WW and getting more active. Health Concerns Section Related Observation LastModified by Organization Detai ls LastModified Time None Recorded Concern Status LastModified by Organization Details LastModified Time None Recorded Advance Directives Directive None Recorded Payers Insurance Date Sequence Insurance Name Policy Number Policy Martinez Covered Member ID Martinez Member ID Guarantor Name 08/11/2022 1 [employer] [facility] (PPO) [id number] Leana Sandra [id number] Leana Sandra 07/23/2022 1 [place] [id number] Leana Sandra [id number] Leana Sandra 06/14/2022 1 [facility] (PPO) [id number] Leana Sandra [id number] Leana Sandra 08/11/2022 1 [place] [id number] Leana Sandra [id number] Leana Sandra Notes Date Note Type Note Provider Name and Address Organization Details Recorded Time 12/29/2018 text/html Pt is here after a small bowel obstruction in October a few weeks after an abdominal hernia 11/04/18 and did a reconstruction with a good outcome. Pt has a hx of 2 other bowel obstructions. Pt quit smoking.Pt has lost a tremendous amount of weight. Pt will see surgical doc in a few weeks. PT is very motivated to strengthen her core, continue with weight loss and get stronger. Cassia see [facility] 12/29/2018 10:46:52 07/26/2022 text/html Generic HPI TemplateReported by PatientROS as noted in the HPI physical exam age 62, sees Dr Starr but she is n/a for appt in office for months.Pt is stable, has inactive crohns and sleep apneaPt has gained about 50 pounds through the pandemic, now doing weight watchers. Mary see [facility] 08/10/2022 23:53:35 OBGyn Episode No OBEpisode recorded.
== END 2025-09-05 11:42 | disposition home or self-care (01) ==
LOC: HO.HOS 10:46
PROVIDERS: PCP Internal Medicine; Visit Provider Orthopaedic Surgery
DX: S83.241A Other tear of medial meniscus, current injury, right knee, initial encounter (principal)
CPT/HCPCS: 99204

== ENCOUNTER → 2025-09-05 10:58 | Outpatient (BNV) | payer BC, SELFPAY | PROVIDERS: Visit Provider Radiology Diagnostic Ultrasound | DX: M17.11 Unilateral primary osteoarthritis, right knee (principal); M25.461 Effusion, right knee | CPT/HCPCS: 73562 ==

== ENCOUNTER → 2025-10-21 11:01 | Outpatient (BNV) | payer BC, SELFPAY | PROVIDERS: PCP Internal Medicine; Visit Provider Internal Medicine Cardiovascular Disease | DX: Z01.810 Encounter for preprocedural cardiovascular examination (principal) | CPT/HCPCS: 93010 ==